=== PATIENT | male | born 1930 | race Caucasian/White ===

== ENCOUNTER 2016-11-28 05:36 | Inpatient (IN) | payer MEDICARE ==
[2016-11-28] VITALS (9 sets, daily range): BP systolic 110–147; BP diastolic 66–82; PULSE 69–101; RESP 13–21; O2SAT 93–98
[~2016-11-28] VITALS: Ht 182.9 cm; Wt 91.1 kg
[~2016-11-28 05:36] MED LIST: Albuterol inhaler IH; COU5 PO; DILT240C45; DOCU250C7 PO; EPOETIN ALFA SUBQ; FRSM80T PO; FURO40TA PO; Flonase; HYDR1TAB PO; LOPRESSOR25 MG PO; METO25TA6 PO; MULT-892 PO; POTA20TA16 PO; TAM4 PO; TAMS0.4C29; WARF5TAB7; Warfarin PO; ZLP10T PO; [UNRECOGNIZED DRUG - CODE] PO
--- NOTE | 2016-11-28 06:26 | ED.REPORT ---
HPI-Abd Pain M 40 and Over Date of Service Nov 28, 2016 ED Provider: Nate Dowling MD History of Present Illness: OCC Patient is an 86 year old male anticoagulated on Warfarin who presents to the ED complaining of right sided abdominal pain onset last night. He describes his pain as soreness. Associated symptoms include a cough which exacerbated his pain and abdominal swelling. He denies fever, SOB, dysuria, nausea, vomiting, diarrhea, or any other symptoms. He has been taking NyQuil. He took half of a Vicodin at 0500 this morning. His Warfarin level was last checked last week and it was a little high. Nursing Notes Stated Complaint: ABDOMINAL PAIN Chief Complaint: Male Abdominal Pain Nursing Notes Reviewed: Yes (TriviaPad, meds not reconciled, MED indicates ho warfarin use) Allergies: Coded Allergies: No Known Allergies (Verified , 11/28/16) Scheduled ([Procrit Q 2 Wks]) 30,000 U SUBQ Qmonth ([Albuterol inhaler]) IH PRN ([Warfarin]) 2.5 PO 2XW ([Flonase]) DAILY Diltiazem-Expunged Drug, Do Not Renew! (Diltiazem CD-Expunged Drug, Do Not Renew !) 240 Mg Capsule 240 MG PO DAILY Docusate Sod-Expunged Drug, Do Not Renew! (Docusate Sod-Expunged Drug, Do Not Renew!) 250 Mg Cap 250 MG PO TID Furosemide-Expunged Drug, Do Not Renew! (Lasix-Expunged Drug, Do Not Renew!) 40 Mg Tablet 80 MG PO BID Hydrocod/APAP-Expunged, Do Not Renew! (VICODIN 5/500-Expunged Drug, Do Not Renew ) 1 Udtab Tablet 1 UDTAB PO PRN Metoprolol Tart-Expunged Drug, Do Not Renew! (Metoprolol Tart-Expunged Drug, Do Not Renew!) 25 Mg Tab 25 MG PO BID Multivitamin (Daily Value) 1 Each Tablet 1 EACH PO DAILY Potassium Chl-Expunged Drug, Do Not Renew! (L-Pkf-Gouztfix Drug, Do Not Renew!) 20 Meq Tab.prt.sr 20 MEQ PO DAILY Tamsulosin-Expunged Drug, Do Not Renew! (Flomax-Expunged Drug, Do Not Renew!) 0.4 Mg Capsule 0.4 MG PO DAILY Warfarin Inactive Drug Do Not Use (Coumadin Inactive Drug Do Not Use) 5 Mg Tablet 5 MG PO 4XW Zolpidem-Expunged Drug, Do Not Renew! (Zolpidem-Expunged Drug, Do Not Renew!) 10 Mg Tab 5 MG PO PRN Miscellaneous Medications Diltiazem ER (Dilt XR) 240 Mg Cap.er.deg Furosemide (Furosemide) 80 Mg Tab Metoprolol Tartrate (Metoprolol Tartrate) 25 Mg Tablet Tamsulosin ER (Tamsulosin ER) 0.4 Mg Cap.er.24h Warfarin Sodium (Warfarin Sodium) 5 Mg Tablet General Time Seen by MD: 06:25 Chief Complaint Abdominal pain Hx Obtained From: Patient, Spouse Arrived By: Walk-in Sudden in Onset?: Yes Risk Factors )( AAA Risk Stratification HypertensionNo Smoking Risk factors reviewed Past Medical History Past Medical History Notes: Last ED visit - tx to [facility] [place] for subdural Past Medical History Subdural hematoma 06/2016 Chronic a-fib on Warfarin 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 Physical Exam Initial Vital Signs Vital Signs (First) Date Time Temp Pulse Resp B/P Pulse Ox O2 Delivery O2 Flow Rate FiO2 11/28/16 05:41 37.6 101 18 135/74 95 Room Air Initial VS: Reviewed, Vital signs abnormal Head / Eyes: Normocephalic Neck: Full range of motion Skin: Warm, Dry Neurologic: Alert, Oriented, Nonfocal Psychiatric: Mood/affect normal, Behavior normal, Normal thought content General/Constitutional: Awake, Alert, Well appearing Respiratory / Chest: Atraumatic, No respiratory distress Cardiovascular: Heart sounds NL Abdomen: BS normoactive Tenderness, palpable firmness, and swelling on the R side suspiscious for rectus sheath hematoma. Back: Inspection NL Interpretation & Diagnostics Lab Results Interpretation Result Diagram: 11/28/16 0650 11/28/16 0650 Test 11/28/16 06:50 11/28/16 07:05 11/28/16 09:01 White Blood Count 8.9th/mm3 (3.8-10.1) Red Blood Count 3.60mil/mm3 (4.40-5.80) Hemoglobin 10.2g/dL (13.8-17.2) Hematocrit 30.7% (41.0-50.0) Mean Corpuscular Volume 85.3fL (81-100) Mean Corpuscular Hemoglobin 28.3pg (27.0-35.0) Mean Corpuscular Hemoglobin Concent 33.2% (32.0-37.0) Red Cell Distribution Width 26.6% (12.3-15.4) Platelet Count 563bil/L (150-400) Neutrophils (%) (Auto) 78.8% (40-74) Lymphocytes (%) (Auto) 9.1% (14-46) Monocytes (%) (Auto) 10.9% (4-12) Eosinophils (%) (Auto) 0.4% (0-5) Basophils (%) (Auto) 0.6% (0-3) Prothrombin Time 30.1sec (8.1-12.5) Prothromb Time International Ratio 2.76ratio Sodium Level 134mEq/L (134-144) Potassium Level 4.0mEq/L (3.5-5.2) Chloride Level 94mEq/L (97-108) Carbon Dioxide Level 26mmol/L (18-29) Blood Urea Nitrogen 32mg/dL (8-27) Creatinine 1.47mg/dL (0.76-1.27) Estimat Glomerular Filtration Rate 48mL/min (>59) Glucose Level 128mg/dL (60-99) Calcium Level 8.6mg/dL (8.5-10.1) Total Bilirubin 1.4mg/dL (0.0-1.2) Aspartate Amino Transf (AST/SGOT) 19U/L (0-50) Alanine Aminotransferase (ALT/SGPT) 10U/L (0-44) Alkaline Phosphatase 76U/L (25-160) Total Protein 7.2g/dL (6.4-8.4) Albumin 3.9g/dL (3.4-5.0) Lactic Acid Level 0.8mmol/L (0.4-2.0) Urine Color Yellow (YELLOW) Urine Appearance Clear (CLEAR,HAZY) Urine pH 7.5 (5.0-8.0) Urine Specific [place] 1.010 (1.003-1.035) Urine Protein Negativemg/dL (NEG,TRACE) Urine Glucose (UA) Negativemg/dL (NEGATIVE) Urine Ketones Negativemg/dL (NEGATIVE) Urine Occult Blood Negative (NEGATIVE) Urine Nitrite Negative (NEGATIVE) Urine Bilirubin Negative (NEGATIVE) Urine Urobilinogen Normalmg/dL (NORMAL) Urine Leukocyte Esterase Negative (NEGATIVE) Urine RBC 0-2/hpf (0-2) Urine WBC 0-5/hpf (0-5) Urine Epithelial Cells Occasional/hpf (NONE-MOD) Urine Crystals None seen (NONE SEEN) Urine Bacteria Few/hpf (NONE-FEW) Urine Hyaline Casts None/lpf (NONE) Urine Granular Casts None seen (NONE SEEN) Urine Waxy Casts None seen (NONE SEEN) Urine Red Blood Cell Casts None seen (NONE SEEN) Urine White Blood Cell Casts None seen (NONE SEEN) Urine Mucus None seen (None Seen) Urine Trichomonas None seen (NONE SEEN) Urine Yeast None (NONE SEEN) Urinalysis Comment None Urine Culture Reflexed Not indicated Lab Results Interpretation: CBC normal - mild anemia, not requiring transfusion CMP - trace renal insufficiency Therapeutic INR ECG Interpretation ECG Interpretation: Rate controlled afib nonspecific lateral t wave changes unchaged from jun 2016 rate 83 Time: 06:49 Interpreted by: ED physician X-Ray Chest Interpretation Chest Xray Interpretation: IMPRESSION: Mild left mid and lower lung pneumonia, prior CABG or cardiac valve replacement, or combination thereof. Dictated by: Aroldo Do M.D. on 11/28/2016 at 8:22 Approved by: Aroldo Do M.D. on 11/28/2016 at 8:22 View: Portable, 1 view Interpretation / Wet Read by: Interpret - Radiologist CT Abd / Pelvis Interpretation IMPRESSION: 1. Right rectus sheath hematoma with internal active contrast extravasation. 2. Cirrhosis. 3. Bibasilar pulmonary densities, consistent with pneumonia versus rounded atelectasis. Followup chest CT with intravenous contrast in 3 months is recommended to exclude the less likely possibility of underlying neoplasm. 4. Findings discussed with Dr. Dowling on 11.28.16 at 0820 hrs. Dictated by: Nils Vaughan M.D. on 11/28/2016 at 8:31 Approved by: Nils Vaughan M.D. on 11/28/2016 at 8:31 Study type: Abdominal CT IV contrast Interpretation / Wet Read by: Interpret - Radiologist Re-Eval/Medical Decision Med Decision/Clinical Course This is an 86-year-old male on Coumadin who presents complaining of abdominal pain and right-sided abdominal swelling. She has had a recent cough, with the coughing started having abdominal pain is very severe anytime he coughs. He denies brendan fever shortness of breath. He is on warfarin has had a prior competition of a subdural hematoma requiring drainage a couple years ago. Exam he does have a cough, appears mildly uncomfortable but is pleasant, awake, alert and appropriate and quite sharp. He does have swelling and tenderness over the right side of the rectus sheath and a concern about a rectus wall hematoma. This is been expanding and new since last night. He is not have signs of peritonitis. On anticoagulation for atrial fibrillation and has a porcine valve. He is therapeutic on his INR. Imaging demonstrates a pneumonia on CT scan, as well as a right-sided rectus sheath hematoma, with a small blush. Given he has pain, given there is a blush, and given he still anticoagulated the plan is active reversal w/FFP. In fact the patient says "that is it, I am done with this medication" and makes a reasonable argument that he does not ever want to be on Coumadin again. He has pneumonia-he is being covered with antibiotics. Case was discussed with the hospitalist and the patient is admitted in stable condition. Source of Hx: Old records Time of Eval: 09:43 )( Re-Eval Abdomen: BS normoactive Re-Evaluation/Progress Note: Discussed imaging results with patient and desire for admission. Patient understands and agrees with plan. All questions addressed at this time. Consultation : Referral / Consult Name: Tiarra Boles MD Consulted With: Hospitalist Call Returned at: 10:52 [employer]: Will see patient, Agrees with eval, Agrees with plan, Accepts admit Note: Discussed patient's case. Accepts admit. Counseled Regarding: Diagnosis, Lab results, Need for admission Discharge & Departure Primary Impression: Rectus sheath hematoma Encounter type: initial encounter Qualified Code: S30.1XXA - Contusion of abdominal wall, initial encounter Additional Impressions: Pneumonia Pneumonia type: due to unspecified organism Laterality: unspecified laterality Lung location: unspecified part of lung Qualified Code: B99.9 - Unspecified infectious disease Warfarin anticoagulation Disposition: ADMITTED TO HOSPITAL Vital Signs - All Vital Signs Date Time Temp Pulse Resp B/P Pulse Ox O2 Delivery O2 Flow Rate FiO2 11/28/16 11:09 69 21 132/76 96 Room Air 11/28/16 11:09 37.0 76 14 11/28/16 10:16 37.0 76 14 122/69 95 Room Air 11/28/16 10:05 37.3 84 16 110/72 96 Room Air 11/28/16 07:31 84 13 117/82 97 Room Air 11/28/16 05:41 37.6 101 18 135/74 95 Room Air Referrals: Natalie Langley MD (PCP) Scribe Attestation Portions of this note were transcribed by Jose Bhatia. I, Dr. Dowling personally performed the history, physical exam and medical decision-making; I reviewed and confirmed the accuracy of the information in the transcribed note. Signed by: Jose Bhatia 11/28/16, 1053 copies to: Natalie Langley MD, Matthew F MD Nov 28, 2016 06:26 JOSE BHATIA Nov 28, 2016 06:36
[2016-11-28] MEDS ORDERED: Ondansetron 2 mg/mL 2 mL Inj IVPUSH ONE (06:35)
[2016-11-28] MEDS: HYDROmorphone 0.5 mg/0.5 mL iSecure Syringe IVPUSH PRN ×3 (07:01→12:00)
[2016-11-28 07:18] LABS: BASOPHILS % (AUTO) 0.6 % (0-3); EOSINOPHILS % (AUTO) 0.4 % (0-5); MONOCYTES % (AUTO) 10.9 % (4-12); Mean Corpuscular Hemoglobin 28.3 pg (27.0-35.0); Mean Corpuscular Volume 85.3 fL (81-100); NEUTROPHILS % (AUTO) 78.8 % (40-74); Platelet Count 563 bil/L (150-400)
[2016-11-28 07:19] LABS: INR 2.76 ratio
--- NOTE | 2016-11-28 08:24 | DRSVH ---
PROCEDURE: X-RAY CHEST ONE VIEW, PORTABLE ([id number]) INDICATIONS: cough TECHNIQUE: One view of the chest was acquired. COMPARISON: [facility], , CHEST 2VW, 09/01/2014, 10:00. FINDINGS: Surgical changes and devices: Sternotomy wires, presumed prior CABG. Lungs and pleura: No pleural effusions or pneumothorax. Lungs are abnormal with left mid and lower lung pneumonia. Mediastinum: Mediastinal contours appear normal. Heart size is mildly enlarged. Bones and chest wall: No suspicious bony lesions. Overlying soft tissues appear unremarkable. IMPRESSION: Mild left mid and lower lung pneumonia, prior CABG or cardiac valve replacement, or combi nation thereof. Dictated by: Aroldo Do M.D. on 11/28/2016 at 8:22 Approved by: Aroldo Do M.D. on 11/28/2016 at 8:22
--- NOTE | 2016-11-28 08:33 | DRSVH ---
PROCEDURE: CT ABDOMEN AND PELVIS WITH CONTRAST ([id number]) INDICATIONS: Abd pain, on coumadn TECHNIQUE: After the administration of intravenous contrast, 5 mm thick sections acquired from the diaphragm to the symphysis. 5 mm coronal and sagittal reformats were acquired. For radiation dose reduction, the following was used: automated exposure control, adjustment of mA and/or kV according to patient siz e. COMPARISON: None. FINDINGS: Image quality: Excellent. ABDOMEN: Lung bases: There is moderate bibasilar patchy air space opacity. There is rounded density within the right posterior lung base measuring 3 mm. There is a calcified nodule within the left posterior medi al costophrenic angle measuring 20 mm. Rounded nodular density within the left posterior lung base me asuring 19 mm is present. 6 mm diameter subpleural nodular density within the right anterolateral palak g base. Heart size is enlarged. Solid organs: Liver and spleen are normal in size and enhancement. The hepatic contour is nodular, indicating cirrhosis. Gallbladder is within normal limits. Biliary system is non dilated. Pancreas enhances normally. No adrenal nodules. Kidneys demonstrate normal size and enhancement, without hyd ronephrosis. Peritoneum and bowel: Bowel loops demonstrate normal wall thickness and caliber. No free fluid or a ir. Nodes and vessels: No retroperitoneal or mesenteric adenopathy by size criteria. Aorta and inferior vena cava are normal in size. Miscellaneous: No ventral hernias. Within the right anterior abdominal wall involving the right rec tus sheath, there is a fluid/fluid level with high density material measuring 10 cm transverse by 12 cm craniocaudal by 7 cm anteroposterior, indicating hematoma. Within the medial aspect of this hemato ma, there is a focal region of increased density, consistent with active contrast extravasation, donald uring roughly 20 mm. PELVIS: Genitourinary: Bladder wall thickness is normal. Miscellaneous: No inguinal hernias or adenopathy. Bones: No suspicious bony lesions. No acute vertebral body compression fractures. Mild chronic L1 wedging is present. IMPRESSION: 1. Right rectus sheath hematoma with internal active contrast extravasation. 2. Cirrhosis. 3. Bibasilar pulmonary densities, consistent with pneumonia versus rounded atelectasis. Followup ches t CT with intravenous contrast in 3 months is recommended to exclude the less likely possibility of u nderlying neoplasm. 4. Findings discussed with Dr. Dowling on 11.28.16 at 0820 hrs. Dictated by: Nils Vaughan M.D. on 11/28/2016 at 8:31 Approved by: Nils Vaughan M.D. on 11/28/2016 at 8:31
[2016-11-28] MEDS ORDERED: 0.9% Sodium Chloride 250 ML IV ONE (08:55)
[2016-11-28 10:02] LABS: APPEARANCE,URINE CLEAR (CLEAR,HAZY); COLOR,URINE YELLOW (YELLOW); OCCULT BLOOD,URINE NEGATIVE (NEGATIVE); PH,URINE 7.5 (5.0-8.0); UROBILINOGEN,URINE NORMAL (NORMAL)
[2016-11-28] MEDS ORDERED: Azithromycin Inj 500 MG in Dextrose 5% w/Vial Mate 250 ML IV ONE (10:45)
[2016-11-28] MEDS ORDERED: cefTRIAXone Inj 2,000 MG in IV Premix 1 EACH IV ONE (10:45)
[2016-11-28] MEDS: Ondansetron 2 mg/mL 2 mL Inj IVPUSH PRN (11:20)
--- NOTE | 2016-11-28 12:15 | NUR ---
Admit to [facility] [place] from ED Pt admitted via stretcher at 1205. Last 5 min of FFP/NS infused now stopped and IV SL. Pt c/o R sided abd pain 06/28. Medicated in ED prior to transport-per report. Pt oriented to room and facility. Bed in low position, call light in reach. Ice pack given for discomfort. IV in hand patent. Family at bedside. Admit yet to be done.
[2016-11-28] MEDS ORDERED: PHA MIX IV ONE (12:50)
[2016-11-28] MEDS ORDERED: Polyethylene Glycol (PEG) 17 Gm Powder PO PRN (12:50)
[2016-11-28] MEDS ORDERED: PHYTONADIONE IV ONE (12:50)
[2016-11-28] MEDS ORDERED: DEXTROSE 5% IV ONE (12:50)
--- NOTE | 2016-11-28 14:03 | PCM.HPMED ---
Subjective Date of Service Nov 28, 2016 Primary Provider: Admitting Physician: Tiarra Boles MD Primary Care Physician: Natalie Langley MD Attending Physician: Tiarra Boles MD Chief Complaint: Severe abdominal pain History of Present Illness: 86-year-old male with A. fib on Coumadin for 10 years, s/p AVR, follow up , hx of SDH in due to mechanical fall p/w sudden onset abdominal pain. Patient was usual state of health until Shira, he had intermittent dry cough , subjective chills, cough has not really progressed to productive, frequency of cough has not changed. Last night, patient also was coughing and started having soreness on his belly, gradually got worsened 06/28, no n/v, no chest pain or difficulty breathing though palpitation. Patient took Vicodin 1 tablet , which did not resolve the pain. Pain was getting worse until this morning, decided to come to the hospital ROS: Denies fever or chills, nausea, vomiting, diarrhea, consultation, had normal bowel movement yesterday, sick contacts, travel, dysuria/frequency, denied weight gain/increased abdominal girdle/LE edema In ED, VS XK090m, HR101, fever37.6, RR18, 95% on RA, pt noted to have palpitating mass on abdomen, CT abd with contrast showed hematoma in Rt rectus sheath [id number] with active extravasation 20mm, INR2.76 so pt received 2FFP, zofran, Miralax, CXR suggestive of PNA, LLL infilrate, Rocephin/azithromycin given. During interview in [facility] [place], VS remained stable, pt stated pain improved to 3/10, denied SOB, still coughing mildly, no sputum, denied F/C Review of Systems: Pertinent positives as noted in history of present illness. 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 Chronic renal insufficiency ho Thoracic aortic aneurysm Anemia of renal disease Hypertension Hearing loss Past Surgical History S/P aortic valve replacement with porcine valve subdural hematoma drainage SH never smoked, occasional ETOH, no illicit drugs Lives with Social History Hx Alcohol Use: Yes (socially) Hx Substance Use: No Hx Tobacco Use: No Smoking Status: Never Smoker, Unknown if Ever Smoker Exam Vital Signs Vital Sign - Last Date Time Temp Pulse Resp B/P Pulse Ox O2 Delivery O2 Flow Rate FiO2 11/28/16 12:18 36.9 69 20 147/66 98 Room Air Exam NAD, comfortably laying down on the bed no JVD, MMM, no LAD RRR, nl s1, s2 no mrg CTAB, no w,c S,ND,periumbilical mass mildly tender to palpate,normoactive BS+ warm, no edema, pulses 2/2 Lab and Diagnostics Result Diagram: 11/28/16 0650 11/28/16 0650 X-Rays, CTs and MRIs PROCEDURE: CT ABDOMEN AND PELVIS WITH CONTRAST ([id number]) INDICATIONS: Abd pain, on coumadn TECHNIQUE: After the administration of intravenous contrast, 5 mm thick sections acquired from the diaphragm to the symphysis. 5 mm coronal and sagittal reformats were acquired. For radiation dose reduction, the following was used: automated exposure control, adjustment of mA and/or kV according to patient size. COMPARISON: None. FINDINGS: Image quality: Excellent. ABDOMEN: Lung bases: There is moderate bibasilar patchy air space opacity. There is rounded density within the right posterior lung base measuring 3 mm. There is a calcified nodule within the left posterior medial costophrenic angle measuring 20 mm. Rounded nodular density within the left posterior lung base measuring 19 mm is present. 6 mm diameter subpleural nodular density within the right anterolateral lung base. Heart size is enlarged. Solid organs: Liver and spleen are normal in size and enhancement. The hepatic contour is nodular, indicating cirrhosis. Gallbladder is within normal limits. Biliary system is non dilated. Pancreas enhances normally. No adrenal nodules. Kidneys demonstrate normal size and enhancement, without hydronephrosis. Peritoneum and bowel: Bowel loops demonstrate normal wall thickness and caliber. No free fluid or air. Nodes and vessels: No retroperitoneal or mesenteric adenopathy by size criteria. Aorta and inferior vena cava are normal in size. Miscellaneous: No ventral hernias. Within the right anterior abdominal wall involving the right rectus sheath, there is a fluid/fluid level with high density material measuring 10 cm transverse by 12 cm craniocaudal by 7 cm anteroposterior, indicating hematoma. Within the medial aspect of this hematoma , there is a focal region of increased density, consistent with active contrast extravasation, measuring roughly 20 mm. PELVIS: Genitourinary: Bladder wall thickness is normal. Miscellaneous: No inguinal hernias or adenopathy. Bones: No suspicious bony lesions. No acute vertebral body compression fractures. Mild chronic L1 wedging is present. IMPRESSION: 1. Right rectus sheath hematoma with internal active contrast extravasation. 2. Cirrhosis. 3. Bibasilar pulmonary densities, consistent with pneumonia versus rounded atelectasis. Followup chest CT with intravenous contrast in 3 months is recommended to exclude the less likely possibility of underlying neoplasm. 4. Findings discussed with Dr. Dowling on 11.28.16 at 0820 hrs. Dictated by: Nils Vaughan M.D. on 11/28/2016 at 8:31 Approved by: Nils Vaughan M.D. on 11/28/2016 at 8:31 Assessment & Plan 86-year-old male with A. fib on Coumadin for 10 years, s/p AVR, follow up , hx of SDH in due to mechanical fall p/w sudden onset abdominal pain, found to have rectus sheath bleeding acute, active #Right rectal sheath hematoma, POA, in the setting of Coumadin, size [id number] with active extravasation 20mm, INR2.76 s/p 2FFP -consulted with Gen Surg, IR, since this is venous bleeding, spontaneously resolves, no indiction for embolization/surgery -serial h/h q8h, close observation of hematoma size -will give vitK 2mg iv, check INR tomorrow -transfuse, hgb target>8 given CAD -defer further use of anticoagulant to Cardiology, current indication seems only for afib with stroke prevention, likely not to initiate any AC given recurrent bleeding episode. #Intermittent dry cough, subacute>2kws, POA, no SIRS except mild fever, s/p Rocephin/Azithromycin in ED, CT abd showed multiple pulmonary nodules in Rt posterior base, 3mm, Left posterior medial 20mm, 6mm subpleural in Rt anteroilateral base, ddx: malignancy vs atypical infection, -will to viral PCR swab -if pt stays longer, consider pulmonary/ID consult, will supportively tx for now chronic, stable #persistent afib, rate controlled, continue BB today, reusume dilt po tomorrow #s/p bioprosthetic AVR, resume lasix pt remains HD stable dispo; Patient is admitted under observation status with expectation that she will be discharged within 24-48 hours, Diet: cardiac healthy dvt ppx:SCD, systemic AC Full Code Time spent 65min Tiarra Boles MD Nov 28, 2016 13:37
[2016-11-28 18:50] LABS: BASOPHILS % (AUTO) 0.3 % (0-3); EOSINOPHILS % (AUTO) 0.1 % (0-5); MONOCYTES % (AUTO) 8.6 % (4-12); Mean Corpuscular Hemoglobin 28.2 pg (27.0-35.0); Mean Corpuscular Volume 86.7 fL (81-100); NEUTROPHILS % (AUTO) 83.9 % (40-74); Platelet Count 590 bil/L (150-400)
[2016-11-28 19:00] LABS: INR 2.04 ratio
[2016-11-28] MEDS ORDERED: DOCU250C2 PO ×2 (20:28→20:30)
[2016-11-28] MEDS ORDERED: OXYB5TAB10 PO (20:28)
[2016-11-28] MEDS ORDERED: WARF2.5T82 PO (22:36)
[2016-11-28] MEDS ORDERED: CALC500T9 PO (22:42)
[2016-11-29 00:16] LABS: BASOPHILS % (AUTO) 0.3 % (0-3); EOSINOPHILS % (AUTO) 0.2 % (0-5); MONOCYTES % (AUTO) 12.3 % (4-12); Mean Corpuscular Hemoglobin 28.2 pg (27.0-35.0); Mean Corpuscular Volume 86.2 fL (81-100); NEUTROPHILS % (AUTO) 78.4 % (40-74); Platelet Count 640 bil/L (150-400)
[2016-11-29 00:45] VITALS: BP 129/63; PULSE 82; RESP 18; O2SAT 94
--- NOTE | 2016-11-29 04:34 | NUR ---
Abdominal Hematoma Pt had 2 jt bandages to wrap around stomach for support. Intermittent coughing spells with pain and discomfort. Pt reports not feeling size is changing. Pain level around 6/10 and decreased to 2/10 when medicated with IV morphine. Abdominal circumference markings marked on stomach - top, mid, and navel with permanent marker and measurements placed on board with time. 0030: 42.5" (top), 45.5" (mid), 43" (navel). Recommend to measure Q6H, will need to remove jt bandages for measuring. Addendum: 11/29/16 at 0529 by GODFREY HODGES RN Reported abdomen pain again 04/28. Morphine not available per orders. PRN Hydrocodone administered. Pt reports that the pain is gone. Will recommend to dayshift that Hydrocodone works better.
[2016-11-29] MEDS: HYDROcodone-APAP 5-325 mg Tablet PO PRN (04:58)
[2016-11-29 05:44] VITALS: BP 109/67; PULSE 86; RESP 18; O2SAT 95
[2016-11-29 06:37] LABS: BASOPHILS % (AUTO) 0.3 % (0-3); EOSINOPHILS % (AUTO) 0.1 % (0-5); MONOCYTES % (AUTO) 12.9 % (4-12); Mean Corpuscular Hemoglobin 28.1 pg (27.0-35.0); Mean Corpuscular Volume 86.8 fL (81-100); Platelet Count 639 bil/L (150-400)
[2016-11-29 07:06] LABS: Magnesium 2.6 mg/dL (1.6-2.6); Phosphorus 3.9 mg/dL (2.5-4.9)
[2016-11-29] MEDS: Diltiazem CD 240 mg ER24 Capsule PO SCH (09:02)
[2016-11-29] MEDS: Polyethylene Glycol (PEG) 17 Gm Powder PO SCH (09:02)
[2016-11-29 09:30] VITALS: BP 110/70; PULSE 97; RESP 17; O2SAT 94
[2016-11-29] MEDS ORDERED: guaiFENesin 600 mg ER12 Tablet PO SCH (10:33)
[2016-11-29 11:31] VITALS: PULSE 89
[2016-11-29] MEDS: Alum-Mag Hydrox-Simeth 30 mL Suspension PO PRN ×2 (12:37→21:17)
--- NOTE | 2016-11-29 13:40 | NUR ---
Case Management: OBS brochure given and explained to Pt and . Callie HARTMAN, RN
[2016-11-29] MEDS: guaiFENesin 600 mg ER12 Tablet PO SCH ×2 (14:00→21:11)
[2016-11-29 14:04] VITALS: BP 128/67; PULSE 80; RESP 17; O2SAT 94
--- NOTE | 2016-11-29 15:18 | DRSVH ---
PROCEDURE: CT CHEST WITH CONTRAST ([id number]) INDICATIONS: To evaluate for pulmonary nodules TECHNIQUE: After the administration of intravenous contrast, 5 mm thick sections acquired from the pulmonary api george to the posterior costophrenic angles. 7 mm thick coronal and sagittal MIP reformats were acquire d. For radiation dose reduction, the following was used: automated exposure control, adjustment of mA and/or kV according to patient size. COMPARISON: [facility], CT, CT ABD PELVIS W CON, 11/28/2016, 7:46. [facility], CR, CHEST 2VW, 09/01/2014, 10:00. FINDINGS: Image quality: Excellent. Lungs and pleura: Calcified granuloma within the left lung base posteriorly. No significant change in rounded opacity at the right posterior lung base, measuring roughly 58 mm. Moderate patchy airspace opacity within the left lower lobe is unchanged. Airspace opacity within the left lower lobe more sup eriorly is present. No pleural effusions or pneumothorax. Central and peripheral airways are patent and normal in caliber. Mediastinum: Heart size is enlarged. There is calcification of the coronary vasculature.. No perica rdial effusion. No mediastinal or hilar adenopathy by size criteria. Thoracic aorta and central pul monary arteries are normal in size. Esophagus is normal in caliber. No hiatal hernia. Bones and chest wall: No suspicious bony lesions. No vertebral body compression fractures. No axil leigh or supraclavicular adenopathy by size criteria. Thyroid gland is within normal limits. Abdomen: Visualized portions of the upper abdomen demonstrate the superior aspect of the right rectu s sheath hematoma. IMPRESSION: 1. No significant change in rounded density within the right lung base, possibly indicating rounded p neumonia. Continued followup is recommended to exclude malignancy, beginning with chest CT examinatio n in 1 month. 2. Left lower lobe pneumonia. 3. Coronary artery disease and cardiomegaly. 4. Incompletely visualized right rectus sheath hematoma. Dictated by: Nils Vaughan M.D. on 11/29/2016 at 15:17 Approved by: Nils Vaughan M.D. on 11/29/2016 at 15:17
--- NOTE | 2016-11-29 16:20 | NUR ---
Social Work-initial assessment/readiness for discharge: Data:See initial assessment. Pt is a 86 y/o male who was admitted on 11/28/16 for rectal sheet hematoma per H&P. Pt's insurance is [employer] and PCP is Natalie Langley MD. EMR Reviewed. Pt's readmission score is 4-high risk. SW met with pt to discuss discharge planning, SW role explained. Pt resides at home with his in [place] where he remains independent with ADLs. Pt does not use any DME and drives. Pt has no HH or SNF history. 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 SW discussed DPOA/ advanced directive, pt states he has completed this, SW encouraged pt to bring a copy into the hospital. Per RN notes, pt has been up independent in his room. Pt's to provide transport home at discharge. SW provided phone number and plan on white board in room. No anticipated discharge needs. SW will continue to follow if needs arise. Assessment:Pt who is independent at baseline. Plan:Pt to discharge home when medically stable via POV. No anticipated discharge needs. SW will continue to follow if needs arise. ELAYNE Adams Addendum: 11/29/16 at 1625 by ARIANNE PISANO Amended: Links added.
--- NOTE | 2016-11-29 18:34 | NUR ---
Fever Patient temp 99.0 @ 14:00. Tylenol administered.
[2016-11-29 21:44] VITALS: BP 111/59; PULSE 69; RESP 18; O2SAT 92
--- NOTE | 2016-11-29 22:58 | PCM.PNMED ---
Subjective Date of Service Nov 29, 2016 Subjective Patient has no new complaints. He feels that his abdominal distention and discomfort is stable this point. Exam Vital Signs Vital Sign - Last Date Time Temp Pulse Resp B/P Pulse Ox O2 Delivery O2 Flow Rate FiO2 11/29/16 21:44 36.6 69 18 111/59 92 Room Air Intake and Output 11/28/16 11/28/16 11/29/16 Cumulative From/Thru 15:00 23:00 07:00 11/28/16 05:41 - 11/29/16 06:17 Intake Total 250 ml 1600 ml 400 ml 2250 ml Balance 250 ml 1600 ml 400 ml 2250 ml Intake Oral 1600 ml 400 ml 2000 ml IV Total 250 ml 250 ml # Voids 3 3 Exam General: Patient appears comfortable lying in bed with head elevated at approximately 45 HEENT: Head is atraumatic normocephalic with normal male pattern baldness.. Eyes: Pupils are equally round and reactive to light and accommodation. Extraocular muscles are intact. Sclera are white anicteric. Subconjunctival mucosa is pink. Ears and nose are unremarkable. Oropharynx: There is no mucosal lesions, there is no thrush, there is no pharyngitis. Neck: Is supple, there are no nodes, or masses, or tenderness. Chest: Is clear to auscultation and percussion. There are no rales, rhonchi, wheezes or rubs. Heart: Rate, rhythm is regular. There is no murmur, rub or gallop. Abdomen: Good bowel sounds are present. Abdomen is firm especially right of midline, no significant tenderness, no organomegaly or masses were appreciated. Extremities: Are symmetrical and well perfused. There is no edema, there is no cellulitis, no rash. Neurologic: There are no focal neurological deficits. Cranial nerves II through XII are intact. There are no sensory or motor deficits. Psychiatric: Patients mood is calm and shows no sign of agitation. Genital: Deferred Rectal: Deferred Lab and Diagnostics Result Diagram: 11/29/1654611/29/16546 Microbiology Specimen: [id number] Collected: 11/28/16 Status: COMP Req#: [id number] Received: 11/28/16-1523 Source: ROSA Zelaya Desc : Subm Dr: Tiarra Boles MD Ordered: RVP Comments: Collected by Nurse/Unit? Y/N Y Procedure Result Verified Site Microbiology ADENOVIRUS RESPIRATORY PCR Final 11/28/16-1638 Not Detected CORONOVIRUS 229E Final 11/28/16 Not Detected CORONOVIRUS HKU1 Final 11/28/16 Not Detected CORONOVIRUS NL63 Final 11/28/16-1638 Not Detected CORONOVIRUS OC43 Final 11/28/16 Not Detected INFLUENZA A PCR Final 11/28/16 Not Detected INFLUENZA B PCR Final 11/28/16 Not Detected METAPNEUMOVIRUS PCR Final 11/28/16 Not Detected RHINOVIRUS OR ENTEROVIRUS PCR Final 11/28/16 Not Detected PARAINFLUENZA 1 PCR Final 11/28/16 Not Detected PARAINFLUENZA 2 PCR Final 11/28/16 Not Detected PARAINFLUENZA 3 PCR Final 11/28/16 Not Detected PARAINFLUENZA 4 PCR Final 11/28/16 Not Detected CONTINUED ON NEXT PAGE RUN DATE: 11/28/16 [facility] LIVE PAGE 2 RUN TIME: 1639 Specimen Inquiry PHYSICIAN Patient: ALEX ROMERO [id number] (Continued) Specimen: [id number] Collected: 11/28/16 Received: 11/28/16 (Continued) Procedure Result Verified Site RESP SYNCYTIAL VIRUS PCR Final 11/28/16-1638 Not Detected Microbiology (Continued) CHLAMDOPHILIA PNEUMONIAE PCR Final 11/28/16 Not Detected MYCOPLASMA PNEUMONIAE PCR Final 11/28/16 MYCO PNEUMONIAE PCR Not Detected Reference Interval Not Detected FURNITURE DIPPER swab is the only specimen type cleared by the FDA. Nasal wash, tracheal aspirate, and bronchial lavage specimen types have not been cleared by the FDA. Therefore results on any specimen type other than nasopharyngeal are considered investigational testing only. X-Rays, CTs and MRIs PROCEDURE: CT ABDOMEN AND PELVIS WITH CONTRAST ([id number]) INDICATIONS: Abd pain, on coumadn TECHNIQUE: After the administration of intravenous contrast, 5 mm thick sections acquired from the diaphragm to the symphysis. 5 mm coronal and sagittal reformats were acquired. For radiation dose reduction, the following was used: automated exposure control, adjustment of mA and/or kV according to patient size. COMPARISON: None. FINDINGS: Image quality: Excellent. ABDOMEN: Lung bases: There is moderate bibasilar patchy air space opacity. There is rounded density within the right posterior lung base measuring 3 mm. There is a calcified nodule within the left posterior medial costophrenic angle measuring 20 mm. Rounded nodular density within the left posterior lung base measuring 19 mm is present. 6 mm diameter subpleural nodular density within the right anterolateral lung base. Heart size is enlarged. Solid organs: Liver and spleen are normal in size and enhancement. The hepatic contour is nodular, indicating cirrhosis. Gallbladder is within normal limits. Biliary system is non dilated. Pancreas enhances normally. No adrenal nodules. Kidneys demonstrate normal size and enhancement, without hydronephrosis. Peritoneum and bowel: Bowel loops demonstrate normal wall thickness and caliber. No free fluid or air. Nodes and vessels: No retroperitoneal or mesenteric adenopathy by size criteria. Aorta and inferior vena cava are normal in size. Miscellaneous: No ventral hernias. Within the right anterior abdominal wall involving the right rectus sheath, there is a fluid/fluid level with high density material measuring 10 cm transverse by 12 cm craniocaudal by 7 cm anteroposterior, indicating hematoma. Within the medial aspect of this hematoma , there is a focal region of increased density, consistent with active contrast extravasation, measuring roughly 20 mm. PELVIS: Genitourinary: Bladder wall thickness is normal. Miscellaneous: No inguinal hernias or adenopathy. Bones: No suspicious bony lesions. No acute vertebral body compression fractures. Mild chronic L1 wedging is present. IMPRESSION: 1. Right rectus sheath hematoma with internal active contrast extravasation. 2. Cirrhosis. 3. Bibasilar pulmonary densities, consistent with pneumonia versus rounded atelectasis. Followup chest CT with intravenous contrast in 3 months is recommended to exclude the less likely possibility of underlying neoplasm. 4. Findings discussed with Dr. Dowling on 11.28.16 at 0820 hrs. Dictated by: Nils Vaughan M.D. on 11/28/2016 at 8:31 Approved by: Nils Vaughan M.D. on 11/28/2016 at 8:31 PROCEDURE: CT CHEST WITH CONTRAST ([id number]) INDICATIONS: To evaluate for pulmonary nodules TECHNIQUE: After the administration of intravenous contrast, 5 mm thick sections acquired from the pulmonary apices to the posterior costophrenic angles. 7 mm thick coronal and sagittal MIP reformats were acquired. For radiation dose reduction , the following was used: automated exposure control, adjustment of mA and/or kV according to patient size. COMPARISON: [facility], CT, CT ABD PELVIS W CON, 11/28/2016, 7:46. [facility], CR, CHEST 2VW, 09/01/2014, 10:00. FINDINGS: Image quality: Excellent. Lungs and pleura: Calcified granuloma within the left lung base posteriorly. No significant change in rounded opacity at the right posterior lung base, measuring roughly 58 mm. Moderate patchy airspace opacity within the left lower lobe is unchanged. Airspace opacity within the left lower lobe more superiorly is present. No pleural effusions or pneumothorax. Central and peripheral airways are patent and normal in caliber. Mediastinum: Heart size is enlarged. There is calcification of the coronary vasculature.. No pericardial effusion. No mediastinal or hilar adenopathy by size criteria. Thoracic aorta and central pulmonary arteries are normal in size. Esophagus is normal in caliber. No hiatal hernia. Bones and chest wall: No suspicious bony lesions. No vertebral body compression fractures. No axillary or supraclavicular adenopathy by size criteria. Thyroid gland is within normal limits. Abdomen: Visualized portions of the upper abdomen demonstrate the superior aspect of the right rectus sheath hematoma. IMPRESSION: 1. No significant change in rounded density within the right lung base, possibly indicating rounded pneumonia. Continued followup is recommended to exclude malignancy, beginning with chest CT examination in 1 month. 2. Left lower lobe pneumonia. 3. Coronary artery disease and cardiomegaly. 4. Incompletely visualized right rectus sheath hematoma. Dictated by: Nils Vaughan M.D. on 11/29/2016 at 15:17 Approved by: Nils Vaughan M.D. on 11/29/2016 at 15:17 Assessment & Plan 86-year-old male with A. fib on Coumadin for 10 years, s/p AVR, follow up , hx of SDH in due to mechanical fall p/w sudden onset abdominal pain, found to have rectus sheath bleeding acute, active # Right rectal sheath hematoma, present on admission, in the setting of Coumadin , size [id number] with active extravasation 20mm, INR2.76 s/p 2FFP -We have consulted with Gen Surg, IR, since this is venous bleeding, spontaneously resolves, no indiction for embolization/surgery -Continue serial h/h q8h, close observation of hematoma size. There does not appear to be any increase in the size of the hematoma -will give vitK 2mg iv, check INR tomorrow -transfuse, hgb target>8 given CAD -We will defer further use of anticoagulant to Cardiology, current indication seems only for afib with stroke prevention, likely not to initiate any AC given recurrent bleeding episode. # Intermittent dry cough, subacute>2kws, POA, no SIRS except mild fever, s/p Rocephin/Azithromycin in ED, CT abd showed multiple pulmonary nodules in Rt posterior base, 3mm, Left posterior medial 20mm, 6mm subpleural in Rt anteroilateral base, ddx: malignancy vs atypical infection. -CT scan of the chest indicates that there is left lower lobe pneumonia and possibly round pneumonia of the right lower lobe. Repeat CT of the chest recommended in 1 month. Based on this information will restart Rocephin and azithromycin this evening. -The patient's viral PCR swab was negative -We will consider pulmonary/ID consult, will supportively tx for now chronic, stable # Persistent afib, rate controlled, continue BB today, reusume dilt po tomorrow # S/P bioprosthetic AVR, resume lasix pt remains HD stable Disposition: Patient is admitted under observation status, however with new CT findings of bilateral pneumonia, patient will likely need to be changed to inpatient status as he will require 48-72 hours of inpatient treatment. Diet: Continue cardiac healthy. Pain Evaluation: Adequate Pain Control GI Prophylaxis: Not indicated VTE Mechanical Devices: Venous Foot Pump Resuscitation Status: CPR: Attempt Resuscitation MadinaBen MD Nov 29, 2016 22:58
[2016-11-29] MEDS: Azithromycin Inj 500 MG in Dextrose 5% w/Vial Mate 250 ML IV SCH (23:41)
[2016-11-30] VITALS (9 sets, daily range): BP systolic 116–136; BP diastolic 53–97; PULSE 65–87; RESP 16–19; O2SAT 94–95
[2016-11-30] MEDS: Ondansetron 2 mg/mL 2 mL Inj IVPUSH PRN (00:11)
[2016-11-30] MEDS: cefTRIAXone Inj 2,000 MG in IV Premix 1 EACH IV SCH ×2 (00:48→09:06)
--- NOTE | 2016-11-30 03:59 | NUR ---
Nausea c/o nausea 5 minutes after admin of first abx Azithromycin, 4mg Zofran worked well. Patient resting quietly.
[2016-11-30 06:39] LABS: EOSINOPHILS % (AUTO) 0.4 % (0-5); NEUTROPHILS % (AUTO) 78.4 % (40-74)
[2016-11-30 06:41] LABS: BASOPHILS % (AUTO) 0.3 % (0-3); MONOCYTES % (AUTO) 11.8 % (4-12); Mean Corpuscular Hemoglobin 27.8 pg (27.0-35.0); Mean Corpuscular Volume 86.7 fL (81-100); Platelet Count 673 bil/L (150-400)
[2016-11-30 06:50] LABS: Magnesium 2.7 mg/dL (1.6-2.6)
[2016-11-30 07:22] LABS: ERYTHROCYTE SEDIMENTATION RATE 62 mm/hr (0-30)
[2016-11-30] MEDS ORDERED: Furosemide 10 mg/mL 2 mL Inj IV ONE ×2 (09:00)
[2016-11-30] MEDS: Polyethylene Glycol (PEG) 17 Gm Powder PO SCH (09:03)
[2016-11-30] MEDS: guaiFENesin 600 mg ER12 Tablet PO SCH ×2 (09:04→20:54)
[2016-11-30] MEDS: Diltiazem CD 240 mg ER24 Capsule PO SCH (09:04)
[2016-11-30] MEDS: Azithromycin Inj 500 MG in Dextrose 5% w/Vial Mate 250 ML IV SCH (09:56)
[2016-11-30] MEDS ORDERED: 0.9% Sodium Chloride 250 ML ONE ×2 (12:26→14:23)
--- NOTE | 2016-11-30 15:22 | CONS ---
[address] [address] CONSULTATION REPORT PATIENT: ALEX ROMERO : 1930 MR#: [id number] ADMIT: 11/28/2016 JOB ID: [id number] DATE OF SERVICE: 11/30/2016 INFECTIOUS DISEASE CONSULT: REASON FOR THE CONSULTATION: Unusual bilateral lower lobe infiltrates. I thank Dr. Boni Painter for this timely consult. 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 The patient's history starts right around [place] when he developed a nonproductive but intense cough, as well as some subjective chills, low-grade fevers and a bit of malaise. His cough has been quite severe and has now continued into a third week. In association with this pain, he started developing severe abdominal pain over the past couple of days. This gradually worsened to the point where on November 28 he was 8/10 and intolerable, so he presented to the hospital. Investigations since admission have shown that he has a rectus sheath hematoma, which is presumably secondary to his ongoing anticoagulation with Coumadin and his persistent severe cough. 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 The patient and his tell me that the cough started insidiously around [place]. They were visited by many relatives during that time, but none of them had a cough or appeared ill. The patient's cough has really continued unabated but it was fairly mild most times, though occasionally there were paroxysms. The fevers and chills were low grade and hardly noticeable to the patient and, in general, he did not feel terribly ill as the result of his 2-1/2 or 3-week respiratory tract illness. 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 c. Chronic anticoagulation. 2. Subdural hematoma in June 2016, status post evacuation. 3. Chronic renal insufficiency. 4. Chronic anemia. 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 He retired some years ago and lives with his on [address], where they have an enormous garden and also raise chickens, turkeys and have pet cats. They have only traveled in the last few years to [place], and there has been no travel to the [facility] or the [place], though the patient has lived in the [place] in the distant past. FAMILY HISTORY: Negative for tuberculosis. REVIEW OF SYSTEMS: The patient has subjective chills and perhaps low-grade fevers. No significant headache. No visual complaints, sore throat, trouble swallowing. No chest pain per se. No nausea, vomiting, or diarrhea, though he does have the abdominal pain, which is the reason he actually came to the hospital. No urinary complaints. No musculoskeletal complaints of significance. No skin rash and no neurologic complaints. PHYSICAL EXAMINATION: Reveals an elderly gentleman who appears younger than his stated age of 86. Temperature 37.3. He has been essentially afebrile since admission, although he did have a temperature 37.8 on the , 37.3 today. Pulse 78, respiratory rate 18, blood pressure 117/67. He is saturating well on room air. He is alert, oriented and conversational. Head without evidence of recent trauma. Sinuses nontender. Oral cavity without thrush or pharyngitis. Neck without adenopathy, reasonably supple. Lungs with a few crackles at the bases and an occasional wheeze on the right but not an impressive pulmonary exam. Cardiac exam: Regular rate and rhythm, with systolic murmur. The patient has a well-healed sternotomy scar. His abdomen is tender on the right lower abdominal area. The patient does not have a Linares catheter. His extremities are nonedematous, without cellulitis. Scattered ecchymoses are noted on his extremities though, consistent with his history of Coumadin use and a great deal of outdoor activity. Neurologically, the patient is intact. LABORATORIES: Include a white count which has been steadily rising since admission. It was 8900 on admission, has now risen to 18,000. Platelet count has also been rising from 560 to 673. Sed rate 62. Creatinine 1.65, which is modestly increased. Bilirubin 1.1. LFT normal. Procalcitonin 0.33. Sedimentation rate 62. CRP not done. Urinalysis without white cells. Cultures include just a respiratory viral panel, which is negative. IMAGING: Includes a CT of the abdomen which shows a right rectus sheath hematoma, evidence of cirrhosis and bilateral pulmonary densities. Dedicated CT scan was then done which showed a right lower lobe rounded density, which the radiologist thought could be the so-called round pneumonia, though malignancy would not be completely excluded. Some left infiltrate is also seen. IMPRESSION: Atypical pulm infiltratees in a patient with abd wall bleed RECOMMENDATIONS: 1. I agree with continuing azithromycin and ceftriaxone for the time being, though this is an unusual presentation for community-acquired pneumonia. 2. I would repeat a procalcitonin tomorrow, as this will give us a little more data about possible bacteria etiology of this process. 3. Cryptococcal antigen is indicated in this patient. 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 4. Urine legionella and pneumococcal antigens will be ordered. 5. Sputum Gram stain and culture. 6. QuantiFERON Gold. 7. Hepatitis C antibody. 8. Nothing in the chart that I have seen really reflects any of this history of cirrhosis or any likely reason for it, and I think this is of interest and will likely need some degree of evaluation. We will start with a hepatitis C antibody but it is possible that additional studies may be indicated in the workup of the possible cirrhosis, as was seen on CT scan of the abdomen. Thank you very much for this consult. ELKE
--- NOTE | 2016-11-30 18:37 | NUR ---
Transfusion Patient hemiglobin and hematocrit decreased to 7.3/22.8 this am. Patient transfused with 2 units of RBC's. tolerated well.
--- NOTE | 2016-11-30 22:38 | PCM.PNMED ---
Subjective Date of Service Nov 30, 2016 Subjective Patient is complaining of increased bruising, otherwise he has no new complaints. He has no chest pain no shortness of breath. Exam Vital Signs Vital Sign - Last Date Time Temp Pulse Resp B/P Pulse Ox O2 Delivery O2 Flow Rate FiO2 11/30/16 20:52 36.9 87 16 123/61 95 Room Air Intake and Output 11/29/16 11/29/16 11/30/16 Cumulative From/Thru 15:00 23:00 07:00 11/28/16 05:41 - 11/29/16 21:13 Intake Total 1600 ml 3850 ml Balance 1600 ml 3850 ml Intake Oral 1600 ml 3600 ml IV Total 250 ml # Voids 4 7 Exam General: Patient appears comfortable lying in bed with head elevated again in approximately 45 degrees HEENT: Head is atraumatic normocephalic with normal male pattern baldness.. Eyes: Pupils are equally round and reactive to light and accommodation. Extraocular muscles are intact. Sclera are white anicteric. Subconjunctival mucosa is pink. Ears and nose are unremarkable. Oropharynx: There is no mucosal lesions, there is no thrush, there is no pharyngitis. Neck: Is supple, there are no nodes, or masses, or tenderness. Chest: Is clear to auscultation and percussion. There are no rales, rhonchi, wheezes or rubs. Heart: Rate, rhythm is regular. There is no murmur, rub or gallop. Abdomen: Good bowel sounds are present. Abdomen is slightly less firm especially right of midline, no significant tenderness, no organomegaly or masses were appreciated. There is increased ecchymoses with erythema spreading to the right flank. Extremities: Are symmetrical and well perfused. There is minimal edema, there is no cellulitis, no rash. Neurologic: There are no focal neurological deficits. Cranial nerves II through XII are intact. There are no sensory or motor deficits. Psychiatric: Patients mood is calm and shows no sign of agitation. Genital: Deferred Rectal: Deferred Lab and Diagnostics Result Diagram: 11/30/16193911/30/16 0540 Microbiology Specimen: [id number] Collected: 11/28/16-1499 Status: COMP Req#: [id number] Received: 11/28/16-1523 Source: [facility] Sp Desc : Subm Dr: Tiarra Boles MD Ordered: RVP Comments: Collected by Nurse/Unit? Y/N Y Procedure Result Verified Site Microbiology ADENOVIRUS RESPIRATORY PCR Final 11/28/16 Not Detected CORONOVIRUS 229E Final 11/28/16 Not Detected CORONOVIRUS HKU1 Final 11/28/16 Not Detected CORONOVIRUS NL63 Final 11/28/16 Not Detected CORONOVIRUS OC43 Final 11/28/16 Not Detected INFLUENZA A PCR Final 11/28/16 Not Detected INFLUENZA B PCR Final 11/28/16 Not Detected METAPNEUMOVIRUS PCR Final 11/28/16 Not Detected RHINOVIRUS OR ENTEROVIRUS PCR Final 11/28/16 Not Detected PARAINFLUENZA 1 PCR Final 11/28/16 Not Detected PARAINFLUENZA 2 PCR Final 11/28/16 Not Detected PARAINFLUENZA 3 PCR Final 11/28/16 Not Detected PARAINFLUENZA 4 PCR Final 11/28/16 Not Detected CONTINUED ON NEXT PAGE RUN DATE: 11/28/16 [facility] LIVE PAGE 2 RUN TIME: 1639 Specimen Inquiry PHYSICIAN Patient: ALEX ROMERO [id number] (Continued) Specimen: [id number] Collected: 11/28/16 Received: 11/28/16 (Continued) Procedure Result Verified Site RESP SYNCYTIAL VIRUS PCR Final 11/28/16-1638 Not Detected Microbiology (Continued) CHLAMDOPHILIA PNEUMONIAE PCR Final 11/28/16 Not Detected MYCOPLASMA PNEUMONIAE PCR Final 11/28/16 MYCO PNEUMONIAE PCR Not Detected Reference Interval Not Detected FASHION ILLUSTRATOR swab is the only specimen type cleared by the FDA. Nasal wash, tracheal aspirate, and bronchial lavage specimen types have not been cleared by the FDA. Therefore results on any specimen type other than nasopharyngeal are considered investigational testing only. X-Rays, CTs and MRIs PROCEDURE: CT ABDOMEN AND PELVIS WITH CONTRAST ([id number]) INDICATIONS: Abd pain, on coumadn TECHNIQUE: After the administration of intravenous contrast, 5 mm thick sections acquired from the diaphragm to the symphysis. 5 mm coronal and sagittal reformats were acquired. For radiation dose reduction, the following was used: automated exposure control, adjustment of mA and/or kV according to patient size. COMPARISON: None. FINDINGS: Image quality: Excellent. ABDOMEN: Lung bases: There is moderate bibasilar patchy air space opacity. There is rounded density within the right posterior lung base measuring 3 mm. There is a calcified nodule within the left posterior medial costophrenic angle measuring 20 mm. Rounded nodular density within the left posterior lung base measuring 19 mm is present. 6 mm diameter subpleural nodular density within the right anterolateral lung base. Heart size is enlarged. Solid organs: Liver and spleen are normal in size and enhancement. The hepatic contour is nodular, indicating cirrhosis. Gallbladder is within normal limits. Biliary system is non dilated. Pancreas enhances normally. No adrenal nodules. Kidneys demonstrate normal size and enhancement, without hydronephrosis. Peritoneum and bowel: Bowel loops demonstrate normal wall thickness and caliber. No free fluid or air. Nodes and vessels: No retroperitoneal or mesenteric adenopathy by size criteria. Aorta and inferior vena cava are normal in size. Miscellaneous: No ventral hernias. Within the right anterior abdominal wall involving the right rectus sheath, there is a fluid/fluid level with high density material measuring 10 cm transverse by 12 cm craniocaudal by 7 cm anteroposterior, indicating hematoma. Within the medial aspect of this hematoma , there is a focal region of increased density, consistent with active contrast extravasation, measuring roughly 20 mm. PELVIS: Genitourinary: Bladder wall thickness is normal. Miscellaneous: No inguinal hernias or adenopathy. Bones: No suspicious bony lesions. No acute vertebral body compression fractures. Mild chronic L1 wedging is present. IMPRESSION: 1. Right rectus sheath hematoma with internal active contrast extravasation. 2. Cirrhosis. 3. Bibasilar pulmonary densities, consistent with pneumonia versus rounded atelectasis. Followup chest CT with intravenous contrast in 3 months is recommended to exclude the less likely possibility of underlying neoplasm. 4. Findings discussed with Dr. Dowling on 11.28.16 at 0820 hrs. Dictated by: Nils Vaughan M.D. on 11/28/2016 at 8:31 Approved by: Nils Vaughan M.D. on 11/28/2016 at 8:31 PROCEDURE: CT CHEST WITH CONTRAST ([id number]) INDICATIONS: To evaluate for pulmonary nodules TECHNIQUE: After the administration of intravenous contrast, 5 mm thick sections acquired from the pulmonary apices to the posterior costophrenic angles. 7 mm thick coronal and sagittal MIP reformats were acquired. For radiation dose reduction , the following was used: automated exposure control, adjustment of mA and/or kV according to patient size. COMPARISON: [facility], CT, CT ABD PELVIS W CON, 11/28/2016, 7:46. [facility], CR, CHEST 2VW, 09/01/2014, 10:00. FINDINGS: Image quality: Excellent. Lungs and pleura: Calcified granuloma within the left lung base posteriorly. No significant change in rounded opacity at the right posterior lung base, measuring roughly 58 mm. Moderate patchy airspace opacity within the left lower lobe is unchanged. Airspace opacity within the left lower lobe more superiorly is present. No pleural effusions or pneumothorax. Central and peripheral airways are patent and normal in caliber. Mediastinum: Heart size is enlarged. There is calcification of the coronary vasculature.. No pericardial effusion. No mediastinal or hilar adenopathy by size criteria. Thoracic aorta and central pulmonary arteries are normal in size. Esophagus is normal in caliber. No hiatal hernia. Bones and chest wall: No suspicious bony lesions. No vertebral body compression fractures. No axillary or supraclavicular adenopathy by size criteria. Thyroid gland is within normal limits. Abdomen: Visualized portions of the upper abdomen demonstrate the superior aspect of the right rectus sheath hematoma. IMPRESSION: 1. No significant change in rounded density within the right lung base, possibly indicating rounded pneumonia. Continued followup is recommended to exclude malignancy, beginning with chest CT examination in 1 month. 2. Left lower lobe pneumonia. 3. Coronary artery disease and cardiomegaly. 4. Incompletely visualized right rectus sheath hematoma. Dictated by: Nils Vaughan M.D. on 11/29/2016 at 15:17 Approved by: Nils Vaughan M.D. on 11/29/2016 at 15:17 Assessment & Plan 86-year-old male with A. fib on Coumadin for 10 years, s/p AVR, follow up , hx of SDH in due to mechanical fall p/w sudden onset abdominal pain, found to have rectus sheath bleeding acute, active # Right rectal sheath hematoma, present on admission, in the setting of Coumadin , size [id number] with active extravasation 20mm, INR2.76 s/p 2FFP -We have consulted with Gen Surg, IR, since this is venous bleeding, spontaneously resolves, no indiction for embolization/surgery -Continue serial h/h q8h, close observation of hematoma size. There does not appear to be any increase in the size of the hematoma - The patient was given vitK 2mg iv, check INR tomorrow -Acute blood loss anemia. Will transfuse 2 units of packed red blood cells, hgb target>8 given CAD. Each unit will be followed by Lasix 20 mg IV -We will defer further use of anticoagulant to Cardiology, current indication seems only for afib with stroke prevention, likely not to initiate any AC given recurrent bleeding episode. # Intermittent dry cough, subacute>2kws, prior to admission, no SIRS except mild fever, s/p Rocephin/Azithromycin in ED, CT abd showed multiple pulmonary nodules in Rt posterior base, 3mm, Left posterior medial 20mm, 6mm subpleural in Rt anteroilateral base, ddx: malignancy vs atypical infection. -CT scan of the chest indicates that there is left lower lobe pneumonia and possibly round pneumonia of the right lower lobe. Repeat CT of the chest recommended in 1 month. Based on this information will restart Rocephin and azithromycin this evening. -The patient's viral PCR swab was negative -We have consulted infectious disease and Dr. Campos was kind enough to see the patient and his recommendations are as follows: "RECOMMENDATIONS: 1. I agree with continuing azithromycin and ceftriaxone for the time being, though this is an unusual presentation for community-acquired pneumonia. 2. I would repeat a procalcitonin tomorrow, as this will give us a little more data about possible bacteria etiology of this process. 3. Cryptococcal antigen is indicated in this patient. 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 4. Urine legionella and pneumococcal antigens will be ordered. 5. Sputum Gram stain and culture. 6. QuantiFERON Gold. 7. Hepatitis C antibody. 8. Nothing in the chart that I have seen really reflects any of this history of cirrhosis or any likely reason for it, and I think this is of interest and will likely need some degree of evaluation. We will start with a hepatitis C antibody but it is possible that additional studies may be indicated in the workup of the possible cirrhosis, as was seen on CT scan of the abdomen." chronic, stable # Persistent afib, rate controlled, continue BB today, reusume dilt po tomorrow # S/P bioprosthetic AVR, resume lasix pt remains HD stable Disposition: Patient is admitted under observation status, however with new CT findings of bilateral pneumonia, patient will likely need to be changed to inpatient status as he will require 48-72 hours of inpatient treatment. Diet: Continue cardiac healthy. Disposition: Will be determined by patient's hospital course over the next couple of days. Pain Evaluation: Adequate Pain Control GI Prophylaxis: Not indicated VTE Mechanical Devices: Venous Foot Pump Resuscitation Status: CPR: Attempt Resuscitation Ben Painter MD Nov 30, 2016 22:38
--- NOTE | 2016-12-01 04:28 | NUR ---
Hematoma/Activity Outlined hematoma appears slightly larger this shift moving toward R axillary area. Patient denies pain, declining Jose wraps for splinting. Pt up to chair with 1PA for linen change. Pt using urinal at bedside to void, specimen sent. at bedside overnight assisting with care. Bed alarm on for safety.
[2016-12-01 05:50] VITALS: BP 143/67; PULSE 81; RESP 16; O2SAT 93
[2016-12-01 06:57] LABS: BASOPHILS % (AUTO) 0.2 % (0-3); EOSINOPHILS % (AUTO) 1.2 % (0-5); Mean Corpuscular Hemoglobin 28.5 pg (27.0-35.0); Mean Corpuscular Volume 87.3 fL (81-100); NEUTROPHILS % (AUTO) 80.4 % (40-74); Platelet Count 674 bil/L (150-400)
[2016-12-01 07:13] LABS: Magnesium 2.8 mg/dL (1.6-2.6); Phosphorus 2.5 mg/dL (2.5-4.9)
[2016-12-01] MEDS: Polyethylene Glycol (PEG) 17 Gm Powder PO SCH (08:30)
--- NOTE | 2016-12-01 08:51 | PCM.PNMED ---
Subjective Date of Service Dec 01, 2016 Subjective Patient patient is an 86-year-old male with history significant for A. fib on warfarin, CKD, history of subdural hematoma, and aortic valve replacement presents with abdominal pain status post mechanical fall. He was admitted for a rectus sheath hematoma and pneumonia. Patient denies any new complaints today. Reports walking laps around the unit. Vitals are stable, H&H remained stable as well. Exam Vital Signs Vital Sign - Last Date Time Temp Pulse Resp B/P Pulse Ox O2 Delivery O2 Flow Rate FiO2 12/01/16 05:50 37.2 81 16 143/67 93 Room Air Intake and Output 11/30/16 11/30/16 12/01/16 Cumulative From/Thru 15:00 23:00 07:00 11/28/16 05:41 - 12/01/16 04:15 Intake Total 1150 ml 1100 ml 6100 ml Balance 1150 ml 1100 ml 6100 ml Intake Oral 300 ml 800 ml 4700 ml IV Total 350 ml 600 ml Packed Cells 500 ml 300 ml 800 ml # Voids 1 3 11 # Bowel Movements 1 1 Exam General: No acute distress HEENT: Normocephalic, atraumatic. External ears without defect. Pupils equal, round, and reactive to light and accommodation. Anicteric sclerae, moist conjunctivae, and no lid lag. Neck: Supple with full range of motion. No jugular venous distension. No bruits. No lymphadenopathy or thyromegaly. Cardiovascular: Regular rate and rhythm with no murmurs, rubs, or gallops appreciated Pulmonary: Clear to auscultation bilaterally with no crackles, wheezes, or rhonchi. Normal respiratory effort with no use of accessory muscles. Abdomen: Bowel tones present. Soft, nontender, nondistended. Ecchymosis on the flank Extremities: No clubbing, cyanosis, edema, or lymphadenopathy appreciated. Skin: Normal temperature, turgor, and texture; no rash, ulcers, or subcutaneous nodules appreciated. Neurological: Cranial nerves grossly intact. Normal muscle strength, tone, and bulk. No known gait impairment. Psychiatric: Normal mood and affect. Alert and oriented to person, place, and time. IVs and Medications Medications Reviewed: Medications were reviewed in detail Lab and Diagnostics Result Diagram: 12/01/16 0640 12/01/16 0640 Microbiology Specimen: [id number] Collected: 11/28/16 Status: COMP Req#: [id number] Received: 11/28/16 Source: ROSA Zelaya Desc : Subm Dr: Tiarra Boles MD Ordered: RVP Comments: Collected by Nurse/Unit? Y/N Y Procedure Result Verified Site Microbiology ADENOVIRUS RESPIRATORY PCR Final 11/28/16-1638 Not Detected CORONOVIRUS 229E Final 11/28/16 Not Detected CORONOVIRUS HKU1 Final 11/28/16 Not Detected CORONOVIRUS NL63 Final 11/28/16 Not Detected CORONOVIRUS OC43 Final 11/28/16 Not Detected INFLUENZA A PCR Final 11/28/16 Not Detected INFLUENZA B PCR Final 11/28/16 Not Detected METAPNEUMOVIRUS PCR Final 11/28/16 Not Detected RHINOVIRUS OR ENTEROVIRUS PCR Final 11/28/16 Not Detected PARAINFLUENZA 1 PCR Final 11/28/16 Not Detected PARAINFLUENZA 2 PCR Final 11/28/16 Not Detected PARAINFLUENZA 3 PCR Final 11/28/16 Not Detected PARAINFLUENZA 4 PCR Final 11/28/16 Not Detected CONTINUED ON NEXT PAGE RUN DATE: 11/28/16 [facility] LIVE PAGE 2 RUN TIME: 1639 Specimen Inquiry PHYSICIAN Patient: ALEX ROMERO [id number] (Continued) Specimen: [id number] Collected: 11/28/16 Received: 11/28/16 (Continued) Procedure Result Verified Site RESP SYNCYTIAL VIRUS PCR Final 11/28/16-1638 Not Detected Microbiology (Continued) CHLAMDOPHILIA PNEUMONIAE PCR Final 11/28/16-1638 Not Detected MYCOPLASMA PNEUMONIAE PCR Final 11/28/16 MYCO PNEUMONIAE PCR Not Detected Reference Interval Not Detected LOGGING TR[employer]IVER swab is the only specimen type cleared by the FDA. Nasal wash, tracheal aspirate, and bronchial lavage specimen types have not been cleared by the FDA. Therefore results on any specimen type other than nasopharyngeal are considered investigational testing only. X-Rays, CTs and MRIs PROCEDURE: CT ABDOMEN AND PELVIS WITH CONTRAST INDICATIONS: Abd pain, on coumadn IMPRESSION: 1. Right rectus sheath hematoma with internal active contrast extravasation. 2. Cirrhosis. 3. Bibasilar pulmonary densities, consistent with pneumonia versus rounded atelectasis. Followup chest CT with intravenous contrast in 3 months is recommended to exclude the less likely possibility of underlying neoplasm. 4. Findings discussed with Dr. Dowling on 11.28.16 at 0820 hrs. Dictated by: Nils Vaughan M.D. on 11/28/2016 at 8:31 Approved by: Nils Vaughan M.D. on 11/28/2016 at 8:31 PROCEDURE: CT CHEST WITH CONTRAST ([id number]) INDICATIONS: To evaluate for pulmonary nodules IMPRESSION: 1. No significant change in rounded density within the right lung base, possibly indicating rounded pneumonia. Continued followup is recommended to exclude malignancy, beginning with chest CT examination in 1 month. 2. Left lower lobe pneumonia. 3. Coronary artery disease and cardiomegaly. 4. Incompletely visualized right rectus sheath hematoma. Dictated by: Nils Vaughan M.D. on 11/29/2016 at 15:17 Assessment & Plan Patient patient is an 86-year-old male with history significant for A. fib on warfarin, aortic valve replacement, CKD, history of subdural hematoma, and aortic valve replacement presents with abdominal pain status post mechanical fall. He was admitted for a rectus sheath hematoma and pneumonia. Right rectal sheath hematoma, present on admission, stable - 2nd to fall, in the setting of Coumadin, size [id number] with active extravasation 20mm, INR2.76 s/p 2FFP, Vitamin K - We have consulted with Gen Surg, Dr.Vaughan IR, since this is venous bleeding, spontaneously resolves, no indiction for embolization/surgery - Close observation of hematoma size. - Morphine for pain Acute blood loss anemia, present on admission, stable - Received 2 units of packed red blood cells with Lasix 20 mg IV after each unit - Goals Hgb>8 due to CAD - Trend H&H Chronic Atrial fibrillation, present on admission, stable - Holding warfarin. Patient should never be on warfarin again - Possible aspirin daily 1 mg should H&H stabilized within the next day - Cont diltiazem 240mg daily and metoprolol tartrate BID Left lower lobe pneumonia, present on admission, active - Dry cough >2wks and mild fever, CT scan suggestive of pneumonia, however show pulmonary nodules - Continue Rocephin and azithromycin - ID Dr. Campos has been consulted and is following Disposition: Patient will be here for at least another 2+ days for workup of pneumonia and stabilization hematoma. GI Prophylaxis: Not indicated VTE Mechanical Devices: Venous Foot Pump Resuscitation Status: CPR: Attempt Resuscitation Attending Statement The patient was seen and examined together with Dr. Chaney on 12/01/2016 and I agree with the history, exam and plan as outlined in the note above. Maik Chaney DO Dec 01, 2016 08:51 Wesley Cummins MD Dec 02, 2016 10:24 INDICATIONS: To evaluate for pulmonary nodules TECHNIQUE: After the administration of intravenous contrast, 5 mm thick sections acquired from the pulmonary apices to the posterior costophrenic angles. 7 mm thick coronal and sagittal MIP reformats were acquired. For radiation dose reduction , the following was used: automated exposure control, adjustment of mA and/or kV according to patient size. COMPARISON: [facility], CT, CT ABD PELVIS W CON, 11/28/2016, 7:46. [facility], CR, CHEST 2VW, 09/01/2014, 10:00. FINDINGS: Image quality: Excellent. Lungs and pleura: Calcified granuloma within the left lung base posteriorly. No significant change in rounded opacity at the right posterior lung base, measuring roughly 58 mm. Moderate patchy airspace opacity within the left lower lobe is unchanged. Airspace opacity within the left lower lobe more superiorly is present. No pleural effusions or pneumothorax. Central and peripheral airways are patent and normal in caliber. Mediastinum: Heart size is enlarged. There is calcification of the coronary vasculature.. No pericardial effusion. No mediastinal or hilar adenopathy by size criteria. Thoracic aorta and central pulmonary arteries are normal in size. Esophagus is normal in caliber. No hiatal hernia. Bones and chest wall: No suspicious bony lesions. No vertebral body compression fractures. No axillary or supraclavicular adenopathy by size criteria. Thyroid gland is within normal limits. Abdomen: Visualized portions of the upper abdomen demonstrate the superior aspect of the right rectus sheath hematoma. IMPRESSION: 1. No significant change in rounded density within the right lung base, possibly indicating rounded pneumonia. Continued followup is recommended to exclude malignancy, beginning with chest CT examination in 1 month. 2. Left lower lobe pneumonia. 3. Coronary artery disease and cardiomegaly. 4. Incompletely visualized right rectus sheath hematoma. Dictated by: Nils Vaughan M.D. on 11/29/2016 at 15:17 Approved by: Nils Vaughan M.D. on 11/29/2016 at 15:17 Assessment & Plan 86-year-old male with A. fib on Coumadin for 10 years, s/p AVR, follow up , hx of SDH in due to mechanical fall p/w sudden onset abdominal pain, found to have rectus sheath bleeding acute, active # Right rectal sheath hematoma, present on admission, in the setting of Coumadin , size [id number] with active extravasation 20mm, INR2.76 s/p 2FFP -We have consulted with Gen Surg, IR, since this is venous bleeding, spontaneously resolves, no indiction for embolization/surgery -Continue serial h/h q8h, close observation of hematoma size. There does not appear to be any increase in the size of the hematoma - The patient was given vitK 2mg iv, check INR tomorrow -Acute blood loss anemia. Will transfuse 2 units of packed red blood cells, hgb target>8 given CAD. Each unit will be followed by Lasix 20 mg IV -We will defer further use of anticoagulant to Cardiology, current indication seems only for afib with stroke prevention, likely not to initiate any AC given recurrent bleeding episode. # Intermittent dry cough, subacute>2kws, prior to admission, no SIRS except mild fever, s/p Rocephin/Azithromycin in ED, CT abd showed multiple pulmonary nodules in Rt posterior base, 3mm, Left posterior medial 20mm, 6mm subpleural in Rt anteroilateral base, ddx: malignancy vs atypical infection. -CT scan of the chest indicates that there is left lower lobe pneumonia and possibly round pneumonia of the right lower lobe. Repeat CT of the chest recommended in 1 month. Based on this information will restart Rocephin and azithromycin this evening. -The patient's viral PCR swab was negative -We have consulted infectious disease and Dr. Campos was kind enough to see the patient and his recommendations are as follows: "RECOMMENDATIONS: 1. I agree with continuing azithromycin and ceftriaxone for the time being, though this is an unusual presentation for community-acquired pneumonia. 2. I would repeat a procalcitonin tomorrow, as this will give us a little more data about possible bacteria etiology of this process. 3. Cryptococcal antigen is indicated in this patient. 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 4. Urine legionella and pneumococcal antigens will be ordered. 5. Sputum Gram stain and culture. 6. QuantiFERON Gold. 7. Hepatitis C antibody. 8. Nothing in the chart that I have seen really reflects any of this history of cirrhosis or any likely reason for it, and I think this is of interest and will likely need some degree of evaluation. We will start with a hepatitis C antibody but it is possible that additional studies may be indicated in the workup of the possible cirrhosis, as was seen on CT scan of the abdomen." chronic, stable # Persistent afib, rate controlled, continue BB today, reusume dilt po tomorrow # S/P bioprosthetic AVR, resume lasix pt remains HD stable Disposition: Patient is admitted under observation status, however with new CT findings of bilateral pneumonia, patient will likely need to be changed to inpatient status as he will require 48-72 hours of inpatient treatment. Diet: Continue cardiac healthy. Disposition: Patient will be here for at least another 2+ days for workup of pneumonia and stabilization hematoma. GI Prophylaxis: Not indicated VTE Mechanical Devices: Venous Foot Pump Resuscitation Status: CPR: Attempt Resuscitation Maik Chaney DO Dec 01, 2016 08:51
[2016-12-01] MEDS ORDERED: 0.9% Sodium Chloride 250 ML ONE (08:59)
[2016-12-01 09:00] LABS: INR 1.25 ratio
[2016-12-01] MEDS: cefTRIAXone Inj 2,000 MG in IV Premix 1 EACH IV SCH (09:03)
[2016-12-01] MEDS: Diltiazem CD 240 mg ER24 Capsule PO SCH (09:09)
[2016-12-01] MEDS: guaiFENesin 600 mg ER12 Tablet PO SCH ×2 (09:10→21:17)
[2016-12-01] MEDS: Azithromycin Inj 500 MG in Dextrose 5% w/Vial Mate 250 ML IV SCH (09:46)
[2016-12-01 10:09] LABS: Cryptococcal Ag Negative (Negative)
[2016-12-01 13:09] VITALS: BP 120/63; PULSE 67; RESP 16; O2SAT 92
--- NOTE | 2016-12-01 16:09 | NUR ---
Pt Activity Pt Ambulated with a walk and SBA. Pt completed one lap around the unit. Although pt swayed time to time Pt did not need any physical help with activity.
--- NOTE | 2016-12-01 17:11 | DRSVH ---
[facility] [address] [place] [address] Echocardiogram Report Name: ALEX ROMERO LStudy Date : 12/01/2016 Dharmesh ght: 71 in Hospital Exam Location: [facility] ght: 199 lb Gender: Male BSA : 2.1 m2 : 1930 Age: 86 yrs BP: 143/67 mmHg Reason For Study: AVR, EDEMA Ordering Physician: [facility]PITALIST [facility] Performed By: Shruthi Martinez Referring Physician: DR. Ana NICE, DR. Yenifer MALDONADO Interpretation Summary 1. Normal left ventricular size, wall thickness and systolic function with an estimated EF of 65 to 70% 2. Mild to moderately dilated right ventricle with grossly normal systolic function. The estimated right atrial pressure is elevated at 15 mm Hg. 3. Severe tricuspid regurgitation. The estimated RVSP is 58 mm Hg 4. The prosthetic valve appears well seated. Calcification is noted on at least one leaflet. The velocity across the valve (and mean gradient) has increased since the last echo of 2012. This is suggestive of possible stenosis. Velocities across the LV outflow tract were not obtained (thus a velocity ratio cannot be calculated) Compared to the previous echo of 2012, the RV may be more dilated. The estimated right atrial pressure is still elevated - the estimated RVSP is somewhat higher. The velocities/gradient across the prosthetic valve have increased. LV systolic function is stable. Consider GIGI if further evaluation of the prosthetic valve is required Procedure: A two-dimensional transthoracic echocardiogram with color flow and Doppler was performed. The study quality was technically adequate. Comparison is made with the echocardiogram of 10-06-2013. The patient was in atrial fibrillation with controlled ventricular rate during the exam. Left Ventricle: The left ventricle is normal in size. The ejection fraction is estimated to be 65-70%. No obvious wall motion abnormalities. Diastolic function could not be accurately assessed due to atrial fibrillation. Right Ventricle: The right ventricle is mild to moderately dilated. Grossly normal systolic function. Atria: Both atria are severely dilated. Mitral Valve: There is mild mitral annular calcification. The mitral valve leaflets appear mildly thickened, but open well. There is mild mitral regurgitation. Aortic Valve: The aortic valve is not well visualized. There is thickening of at least one of the cusps with associated calcification. In some views, the calcifications appear somewhat mobile (but visualization is not optimal). There is a bioprosthetic aortic valve. The prosthetic aortic valve is well- seated. The peak aortic velocity is 3.4 m/sec. The aortic valve mean gradient is 24 mmHg. The peak aortic velocity on the previous exam was 2.6 m/sec. No aortic regurgitation is present. Tricuspid Valve: The tricuspid valve leaflets are thin and pliable. There is severe tricuspid regurgitation. The right ventricular systolic pressure is estimated at 58 mmHg assuming a right atrial pressure of 15 mm Hg. Pulmonic Valve: The pulmonic valve is not well visualized. There is a trace or physiologic amount of pulmonic regurgitation. Great Vessels: The aortic root is normal size. The ascending aorta is mildly enlarged. The ascending aorta diameter is 4.1 cm. The pulmonary artery is normal size. The IVC is dilated (diameter is greater than 2.1 cm) and it collapses less than 50% with a sniff. This suggests a high right atrial pressure of 15 mm Hg. Pericardium/ Pleura There is no pericardial effusion. MMode/2D Measurements & Calculations LVIDd: 4.1 cm LA dimension: 4.5 cm RA long axis LVOT diam: 2.1 cm LVIDs: 2.3 cm AoV Openin.3 cm FS: 43.5 % LA A2 area: 30.0 cm RA area Ao root diam: 3.3 cm EPSS: 0.22 cm LA A4 area: 37.3 cm asc Aorta Diam IVSd: 0.89 cm LA length (vol) : 43.9 cm LVPWd: 1.1 cm RA vol Ao Arch Diam LA vol: 139.2 ml : 209.ml (Proximal trans.) LA vol index RA : 98.7 mm/ RVDd major IVC diam: 2.8 cm : 9.1 cm LV coronel. diameter/BSALV sys. diameter/BSA RVD2 (mid) (cm/m^2): 1.9 (cm/m^2): 1.1 : 4.7 cm Doppler Measurements & Calculations Ao V2 max MV E max soniya TR max soniya Ao V2 mean : 340.6 cm/sec : 153.0 cm/sec : 327.7 cm/sec : 226.8 cm/sec Ao max PG TR max PG Ao V2 VTI: 65.7 cm : 46.6 mmHg : 43.1 mmHg Ao mean PG PA V2 max : 24.2 mmHg : 78.9 cm/sec PA mean PG PA Accel Time PA V2 mean : 56.7 cm/sec Reading Physician:05:10 PM
[2016-12-01 21:04] VITALS: BP 119/69; PULSE 90; RESP 18; O2SAT 96
[2016-12-01] MEDS: HYDROcodone-APAP 5-325 mg Tablet PO PRN (21:18)
[2016-12-02] VITALS (8 sets, daily range): BP systolic 113–147; BP diastolic 63–81; PULSE 63–93; RESP 16–20; O2SAT 92–97
[2016-12-02 05:58] LABS: Mean Corpuscular Hemoglobin 28.5 pg (27.0-35.0); Mean Corpuscular Volume 87.5 fL (81-100); Platelet Count 778 bil/L (150-400)
--- NOTE | 2016-12-02 06:36 | NUR ---
Pain Pt reported some itching and burning as well as taut skin on R side of abdomen. Lotion provided and Vicodin given x1, effective. Pt asleep off and on.
[2016-12-02 06:56] LABS: BASOPHILS % (AUTO) 0 % (0-3); EOSINOPHILS % (AUTO) 1 % (0-5); MONOCYTES % (AUTO) 10 % (4-12); NEUTROPHILS % (AUTO) 80 % (40-74)
[2016-12-02] MEDS: Polyethylene Glycol (PEG) 17 Gm Powder PO SCH ×2 (08:30→09:21)
[2016-12-02] MEDS: cefTRIAXone Inj 2,000 MG in IV Premix 1 EACH IV SCH (09:20)
[2016-12-02] MEDS: guaiFENesin 600 mg ER12 Tablet PO SCH ×2 (09:20→20:07)
[2016-12-02] MEDS: Azithromycin Inj 500 MG in Dextrose 5% w/Vial Mate 250 ML IV SCH (09:20)
[2016-12-02] MEDS: Diltiazem CD 240 mg ER24 Capsule PO SCH (09:20)
[2016-12-02] MEDS: HYDROcodone-APAP 5-325 mg Tablet PO PRN (09:35)
--- NOTE | 2016-12-02 10:53 | NUR ---
MARYANNE signed. ELAYNE Adams
--- NOTE | 2016-12-02 11:19 | NUR ---
Social Work-continued d/c planning: Data:EMR Reviewed. Pt is on day 4 of hospitalization for hematoma per H&P. Pt is several days out from discharge per MD. SW followed up with pt and family at bedside, plan remains for discharge home. Pt has lots of family and friend support and has been up independent in his room. PT evaluation is pending. SW to follow up post PT evaluation is needs arise. Pt's family to provide transport home. SW will continue to follow. Assessment:Pt who is independent at baseline. Plan:Pt to likely discharge home when medically stable via POV. SW to follow up post PT evaluation is needs arise. SW will continue to follow. ELAYNE Adams
--- NOTE | 2016-12-02 13:53 | NUR ---
Evaluation completed. Please go to "Notes" then click on "Assessments and Notes" (bottom left corner of screen). Then select appropriate discipline tab on top of screen.
--- NOTE | 2016-12-02 14:56 | NUR ---
Pain/Activity Pt c/o 03/28 R flank "burning" and pain. 1 tab [place] PO administered this morning, pt reports relief. Denies pain since. Ambulated in hallway with PT today, held onto IV pole initially, then no assistive device used when walked back into his room. See PT note. Afebrile. VSS.
--- NOTE | 2016-12-02 17:29 | PCM.PNMED ---
Subjective Date of Service Dec 02, [address] Romero states that his only abdominal pain is when he starts coughing. His significant other is bedside this morning and she states that he has had occasional night sweats in which he has to change his shirt for at least 15 years, no increasing frequency of these night sweats. He denies any chills. Exam Vital Signs Vital Sign - Last Date Time Temp Pulse Resp B/P Pulse Ox O2 Delivery O2 Flow Rate FiO2 12/02/16 14:27 36.8 74 16 117/65 97 Room Air Intake and Output 12/01/16 12/01/16 12/02/16 Cumulative From/Thru 14:59 22:59 06:59 11/28/16 05:41 - 12/02/16 04:52 Intake Total 400 ml 1079 ml 600 ml 8179 ml Output Total 350 ml 350 ml Balance 50 ml 1079 ml 600 ml 7829 ml Intake Oral 400 ml 1079 ml 600 ml 6779 ml IV Total 600 ml Packed Cells 800 ml Output Urine Total 350 ml 350 ml # Voids 3 2 16 # Bowel Movements 0 1 Exam General: Elderly male resting comfortably in bed this morning talking with nursing upon my entering the room, No acute distress. Awake, alert, and oriented. Articulate. HEENT: Anicteric sclerae, moist mucus membranes. No cervical lymphadenopathy Cardiovascular: Regular rate and rhythm with a subtle S2 split. No rubs or gallops appreciated Pulmonary: Clear to auscultation bilaterally without crackles, wheezes, or rhonchi. Normal respiratory effort without accessory muscles use or tripoding. Abdomen: Normoactive bowel tones. Extensive ecchymosis on the right flank that crosses the midline anteriorly. Firm RLQ, otherwise soft. Nontender. Extremities: No clubbing, cyanosis, or edema Skin: Normal temperature, turgor, and texture; no rash or ulcers appreciated. Neurological: Cranial nerves grossly intact. Normal muscle strength, tone, and bulk. Observed ambulating, leaning on the IV pole in the hallway with PT assisting, no shuffling gait or ataxia. Psychiatric: Normal mood and affect. Lab and Diagnostics Result Diagram: 12/02/16 0500 12/02/16 0500 Microbiology Specimen: [id number] Collected: 11/28/16 Status: COMP Req#: [id number] Received: 11/28/16-1523 Source: NSP Sp Desc : Subm Dr: Tiarra Boles MD Ordered: RVP Comments: Collected by Nurse/Unit? Y/N Y Procedure Result Verified Site Microbiology ADENOVIRUS RESPIRATORY PCR Final 11/28/16 Not Detected CORONOVIRUS 229E Final 11/28/16 Not Detected CORONOVIRUS HKU1 Final 11/28/16 Not Detected CORONOVIRUS NL63 Final 11/28/16 Not Detected CORONOVIRUS OC43 Final 11/28/16 Not Detected INFLUENZA A PCR Final 11/28/16 Not Detected INFLUENZA B PCR Final 11/28/16 Not Detected METAPNEUMOVIRUS PCR Final 11/28/16 Not Detected RHINOVIRUS OR ENTEROVIRUS PCR Final 11/28/16 Not Detected PARAINFLUENZA 1 PCR Final 11/28/16 Not Detected PARAINFLUENZA 2 PCR Final 11/28/16 Not Detected PARAINFLUENZA 3 PCR Final 11/28/16 Not Detected PARAINFLUENZA 4 PCR Final 11/28/16 Not Detected CONTINUED ON NEXT PAGE RUN DATE: 11/28/16 [facility] LIVE PAGE 2 RUN TIME: 1639 Specimen Inquiry PHYSICIAN Patient: ALEX ROMERO [id number] (Continued) Specimen: [id number] Collected: 11/28/16 Received: 11/28/16 (Continued) Procedure Result Verified Site RESP SYNCYTIAL VIRUS PCR Final 11/28/16-1638 Not Detected Microbiology (Continued) CHLAMDOPHILIA PNEUMONIAE PCR Final 11/28/16-1638 Not Detected MYCOPLASMA PNEUMONIAE PCR Final 11/28/16 MYCO PNEUMONIAE PCR Not Detected Reference Interval Not Detected ELECTRIC RAZOR ASSEMBLER swab is the only specimen type cleared by the FDA. Nasal wash, tracheal aspirate, and bronchial lavage specimen types have not been cleared by the FDA. Therefore results on any specimen type other than nasopharyngeal are considered investigational testing only. X-Rays, CTs and MRIs PROCEDURE: CT ABDOMEN AND PELVIS WITH CONTRAST INDICATIONS: Abd pain, on coumadn IMPRESSION: 1. Right rectus sheath hematoma with internal active contrast extravasation. 2. Cirrhosis. 3. Bibasilar pulmonary densities, consistent with pneumonia versus rounded atelectasis. Followup chest CT with intravenous contrast in 3 months is recommended to exclude the less likely possibility of underlying neoplasm. 4. Findings discussed with Dr. Dowling on 11.28.16 at 0820 hrs. Dictated by: Nils Vaughan M.D. on 11/28/2016 at 8:31 Approved by: Nils Vaughan M.D. on 11/28/2016 at 8:31 PROCEDURE: CT CHEST WITH CONTRAST ([id number]) INDICATIONS: To evaluate for pulmonary nodules IMPRESSION: 1. No significant change in rounded density within the right lung base, possibly indicating rounded pneumonia. Continued followup is recommended to exclude malignancy, beginning with chest CT examination in 1 month. 2. Left lower lobe pneumonia. 3. Coronary artery disease and cardiomegaly. 4. Incompletely visualized right rectus sheath hematoma. Dictated by: Nils Vaughan M.D. 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 He was found to have a large rectus sheath hematoma on CT abdomen. CT chest indicative of left lower lobe pneumonia and possible right sided rounded pneumonia. Right rectus sheath hematoma, present on admission, stable - Secondary to repeated, intense coughing - (General Surgeon), IR, since this is venous bleeding, spontaneously resolves, no indiction for embolization/surgery - Continue with close observation of the hematoma size and his CBC results. - Hydrocodone-acetaminophen PO PRN Acute blood loss anemia, present on admission, improving - Blood loss secondary to the hematoma - Received 2 units of PRBCs with Lasix 20 mg IV after each unit - Goal Hgb of >8 due to his cardiac history - Continue to monitor his Hgb & Hct Chronic Atrial fibrillation, present on admission with longstanding warfarin use , stable - The hematoma and resultant anemia are the second clinically significant hemorrhagic event while he has been on warfarin. - Discontinued warfarin. Discuss with the patient that he should not take warfarin again. - Consider daily aspirin as an alternative to warfarin - Continue diltiazem 240mg daily and metoprolol tartrate BID Left lower lobe pneumonia, present on admission, active - Dry cough for 3weeks and mild fever, CT scan suggestive of pneumonia, however show pulmonary nodules - Continue ceftriaxone and azithromycin, though may consider alternative antibiotic therapy if his leukocyte count rises further - Dr. Campos (infectious disease) has provided expertise Acute Kidney Injury - Improving - Continue to monitor BMP daily - Continue IV Normal Saline at current rate Disposition: Anticipate 2-3 days for further evaluation and treatment of pneumonia and monitoring of the large hematoma. GI Prophylaxis: Not indicated VTE Mechanical Devices: Venous Foot Pump Resuscitation Status: CPR: Attempt Resuscitation Attending Statement The patient was seen and examined together with Dr. Coronel on 12/02/2016 and I agree with the history, exam and plan as outlined in the note above. Janey Coronel DO Dec 02, 2016 16:45 Wesley Cummins MD Dec 03, 2016 12:20
[2016-12-03 06:19] VITALS: PULSE 74
[2016-12-03 06:31] VITALS: BP 131/80; PULSE 74; RESP 16; O2SAT 96
[2016-12-03 07:06] LABS: BASOPHILS % (AUTO) 0.3 % (0-3); EOSINOPHILS % (AUTO) 2.5 % (0-5); MONOCYTES % (AUTO) 12.6 % (4-12); Mean Corpuscular Hemoglobin 28.2 pg (27.0-35.0); NEUTROPHILS % (AUTO) 73.4 % (40-74); Platelet Count 765 bil/L (150-400)
[2016-12-03] MEDS: Polyethylene Glycol (PEG) 17 Gm Powder PO SCH (08:06)
[2016-12-03] MEDS: guaiFENesin 600 mg ER12 Tablet PO SCH ×2 (08:09→20:13)
[2016-12-03] MEDS: Diltiazem CD 240 mg ER24 Capsule PO SCH (08:09)
[2016-12-03] MEDS: cefTRIAXone Inj 2,000 MG in IV Premix 1 EACH IV SCH (08:09)
[2016-12-03] MEDS: Azithromycin Inj 500 MG in Dextrose 5% w/Vial Mate 250 ML IV SCH (08:10)
[2016-12-03 09:59] VITALS: BP 102/62; PULSE 74; RESP 18; O2SAT 97
--- NOTE | 2016-12-03 11:20 | NUR ---
Social Work-readiness for discharge: Data:EMR Reviewed. Pt is on day 5 of hospitalization for hematoma per H&P. Per MD, pt may be ready in the next day or two. PT saw pt yesterday and recommend home with HH, pt ambulated 100 ft. SW followed up with pt at bedside to discuss, SW role explained. JESUS explained recommendation of HH services, SW provided pt with list. Pt is agreeable to with no agency preference. JESUS referred to rotating calendar and made referral to [facility] for RN and Pt, access given. F2F in the folder. SW will continue to follow. Assessment:Pt who would benefit from HH. Plan:Pt to discharge home when medically stable via POV. [facility], access given. F2F in the folder. JESUS will continue to follow. ELAYNE Adams Addendum: 12/03/16 at 1449 by ARIANNE PISANO JESUS also discussed plan with Son Brock [phone]. Son in agreement with Home Health services, JESUS provided him with list also. Son working on moving furniture and getting home ready for pt. JESUS will continue to follow. ELAYNE Adams
[2016-12-03 13:59] VITALS: BP 108/61; PULSE 66; RESP 18; O2SAT 98
[2016-12-03 17:04] VITALS: BP 130/76; PULSE 72; RESP 18; O2SAT 97
[2016-12-03] MEDS: HYDROcodone-APAP 5-325 mg Tablet PO PRN (17:30)
--- NOTE | 2016-12-03 17:47 | NUR ---
Pain/Activity Pt c/o 03/28 R flank "burning" and pain. 1 tab [place] PO administered this evening, pt reports relief. Ambulated in hallway with PT today and today, no assistive devise needed; PT orders SBA. See PT note. Afebrile. VSS.
[2016-12-03] MEDS: guaiFENesin DM 200-20 mg/10 mL Syrup PO PRN (18:18)
[2016-12-03 21:48] VITALS: BP 136/72; PULSE 93; RESP 18; O2SAT 96
--- NOTE | 2016-12-03 23:10 | PCM.PNMED ---
Subjective Date of Service Dec 03, 2016 Subjective Patient complains of cough and pain in his abdomen and right side when he coughs. He has no other new complaints. Exam Vital Signs Vital Sign - Last Date Time Temp Pulse Resp B/P Pulse Ox O2 Delivery O2 Flow Rate FiO2 12/03/16 21:48 36.0 93 18 136/72 96 Room Air Intake and Output 12/02/16 12/02/16 12/03/16 Cumulative From/Thru 15:00 23:00 07:00 11/28/16 05:41 - 12/03/16 06:31 Intake Total 1086 ml 300 ml 9565 ml Output Total 550 ml 100 ml 1000 ml Balance 536 ml 200 ml 8565 ml Intake Oral 1086 ml 300 ml 8165 ml IV Total 600 ml Packed Cells 800 ml Output Urine Total 550 ml 100 ml 1000 ml # Voids 2 2 20 # Bowel Movements 1 Exam General: Patient appears comfortable lying in bed with head elevated again at approximately 45 degrees HEENT: Head is atraumatic normocephalic with normal male pattern baldness.. Eyes: Pupils are equally round and reactive to light and accommodation. Extraocular muscles are intact. Sclera are white anicteric. Subconjunctival mucosa is pale. Ears and nose are unremarkable. Oropharynx: There is no mucosal lesions, there is no thrush, there is no pharyngitis. Neck: Is supple, there are no nodes, or masses, or tenderness. Chest: Is clear to auscultation and percussion. There are no rales, rhonchi, wheezes or rubs. Heart: Rate, rhythm is regular. There is no murmur, rub or gallop. Abdomen: Good bowel sounds are present. Abdomen is slightly less firm especially right of midline, no significant tenderness, no organomegaly or masses were appreciated. The ecchymoses and erythema has spread to the right flank. However there does not appear to be new bleeding. Extremities: Are symmetrical and well perfused. There is minimal edema, there is no cellulitis, no rash. Neurologic: There are no focal neurological deficits. Cranial nerves II through XII are intact. There are no sensory or motor deficits. Psychiatric: Patients mood is calm and shows no sign of agitation. Genital: Deferred Rectal: Deferred Lab and Diagnostics Result Diagram: 1/15/17 0603 1/15/17 0603 Microbiology Specimen: [id number] Collected: 11/28/16-1499 Status: COMP Req#: [id number] Received: 11/28/16 Source: ROSA Sp Desc : Subm Dr: Tiarra Boles MD Ordered: RVP Comments: Collected by Nurse/Unit? Y/N Y Procedure Result Verified Site Microbiology ADENOVIRUS RESPIRATORY PCR Final 11/28/16-1638 Not Detected CORONOVIRUS 229E Final 11/28/16 Not Detected CORONOVIRUS HKU1 Final 11/28/16 Not Detected CORONOVIRUS NL63 Final 11/28/16-1638 Not Detected CORONOVIRUS OC43 Final 11/28/16 Not Detected INFLUENZA A PCR Final 11/28/16 Not Detected INFLUENZA B PCR Final 11/28/16 Not Detected METAPNEUMOVIRUS PCR Final 11/28/16 Not Detected RHINOVIRUS OR ENTEROVIRUS PCR Final 11/28/16 Not Detected PARAINFLUENZA 1 PCR Final 11/28/16 Not Detected PARAINFLUENZA 2 PCR Final 11/28/16 Not Detected PARAINFLUENZA 3 PCR Final 11/28/16 Not Detected PARAINFLUENZA 4 PCR Final 11/28/16 Not Detected CONTINUED ON NEXT PAGE RUN DATE: 11/28/16 [facility] LIVE PAGE 2 RUN TIME: 1639 Specimen Inquiry PHYSICIAN Patient: ALEX MEREDITH [id number] (Continued) Specimen: [id number] Collected: 11/28/16-1499 Received: 11/28/16 (Continued) Procedure Result Verified Site RESP SYNCYTIAL VIRUS PCR Final 11/28/16-1638 Not Detected Microbiology (Continued) CHLAMDOPHILIA PNEUMONIAE PCR Final 11/28/16-1638 Not Detected MYCOPLASMA PNEUMONIAE PCR Final 11/28/16 MYCO PNEUMONIAE PCR Not Detected Reference Interval Not Detected FENCE BUILDER swab is the only specimen type cleared by the FDA. Nasal wash, tracheal aspirate, and bronchial lavage specimen types have not been cleared by the FDA. Therefore results on any specimen type other than nasopharyngeal are considered investigational testing only. X-Rays, CTs and MRIs PROCEDURE: CT ABDOMEN AND PELVIS WITH CONTRAST INDICATIONS: Abd pain, on coumadn IMPRESSION: 1. Right rectus sheath hematoma with internal active contrast extravasation. 2. Cirrhosis. 3. Bibasilar pulmonary densities, consistent with pneumonia versus rounded atelectasis. Followup chest CT with intravenous contrast in 3 months is recommended to exclude the less likely possibility of underlying neoplasm. 4. Findings discussed with Dr. Dowling on 11.28.16 at 0820 hrs. Dictated by: Nils Vaughan M.D. on 11/28/2016 at 8:31 Approved by: Nils Vaughan M.D. on 11/28/2016 at 8:31 PROCEDURE: CT CHEST WITH CONTRAST ([id number]) INDICATIONS: To evaluate for pulmonary nodules IMPRESSION: 1. No significant change in rounded density within the right lung base, possibly indicating rounded pneumonia. Continued followup is recommended to exclude malignancy, beginning with chest CT examination in 1 month. 2. Left lower lobe pneumonia. 3. Coronary artery disease and cardiomegaly. 4. Incompletely visualized right rectus sheath hematoma. Dictated by: Nils Vaughan M.D. on 11/29/2016 at 15:17 Cardiac Echo Impressions Echocardiogram Report Name: ALEX MEREDITH LStudy Date : 12/01/2016 Michi ght: 71 in Hospital Exam Location: [facility] ght: 199 lb Gender: Male BSA : 2.1 m2 : 1930 Age: 86 yrs BP: 143/67 mmHg Reason For Study: AVR, EDEMA Ordering Physician: [facility] Performed By: Shruthi Martinez Referring Physician: DR. Ana NICE, DR. Yenifer MALDONADO Interpretation Summary 1. Normal left ventricular size, wall thickness and systolic function with an estimated EF of 65 to 70% 2. Mild to moderately dilated right ventricle with grossly normal systolic function. The estimated right atrial pressure is elevated at 15 mm Hg. 3. Severe tricuspid regurgitation. The estimated RVSP is 58 mm Hg 4. The prosthetic valve appears well seated. Calcification is noted on at least one leaflet. The velocity across the valve (and mean gradient) has increased since the last echo of 2012. This is suggestive of possible stenosis. Velocities across the LV outflow tract were not obtained (thus a velocity ratio cannot be calculated) Compared to the previous echo of 2013, the RV may be more dilated. The estimated right atrial pressure is still elevated - the estimated RVSP is somewhat higher. The velocities/gradient across the prosthetic valve have increased. LV systolic function is stable. 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 He was found to have a large rectus sheath hematoma on CT abdomen. CT chest indicative of left lower lobe pneumonia and possible right sided rounded pneumonia. Right rectus sheath hematoma, present on admission, stable - Secondary to repeated, intense coughing - (General Surgeon), IR, since this is venous bleeding, spontaneously resolves, no indiction for embolization/surgery - Continue with close observation of the hematoma size and his CBC results. - Hydrocodone-acetaminophen PO PRN Acute blood loss anemia, present on admission, improving - Blood loss secondary to the hematoma - Received 2 units of PRBCs with Lasix 20 mg IV after each unit - Goal Hgb of >8 due to his cardiac history - Continue to monitor his Hgb & Hct Chronic Atrial fibrillation, present on admission with longstanding warfarin use , stable - The hematoma and resultant anemia are the second clinically significant hemorrhagic event while he has been on warfarin. - Discontinued warfarin. Discuss with the patient that he should not take warfarin again. - Consider daily aspirin as an alternative to warfarin - Continue diltiazem 240mg daily and metoprolol tartrate BID Left lower lobe pneumonia, present on admission, active - Dry cough for 3weeks and mild fever, CT scan suggestive of pneumonia, however show pulmonary nodules - Continue ceftriaxone and azithromycin, though may consider alternative antibiotic therapy if his leukocyte count rises further - Dr. Campos (infectious disease) has provided expertise. Will discuss case with Dr. Campos in a.m. Acute Kidney Injury - Improving - Continue to monitor BMP daily - Continue IV Normal Saline at current rate Disposition: Anticipate 2-3 days for further evaluation and treatment of pneumonia and monitoring of the large hematoma. Pain Evaluation: Adequate Pain Control GI Prophylaxis: Not indicated VTE Mechanical Devices: Intermittant Pneumatic CD Resuscitation Status: CPR: Attempt Resuscitation Ben Painter MD Dec 03, 2016 23:10
[2016-12-04] MEDS: guaiFENesin DM 200-20 mg/10 mL Syrup PO PRN ×3 (00:18→14:53)
[2016-12-04 05:10] VITALS: BP 123/64; PULSE 78; RESP 18; O2SAT 96
[2016-12-04 07:15] LABS: Mean Corpuscular Hemoglobin 28.6 pg (27.0-35.0); Mean Corpuscular Volume 88.6 fL (81-100); Platelet Count 810 bil/L (150-400)
[2016-12-04] MEDS: Polyethylene Glycol (PEG) 17 Gm Powder PO SCH (08:19)
[2016-12-04] MEDS: guaiFENesin 600 mg ER12 Tablet PO SCH (08:25)
[2016-12-04] MEDS: Diltiazem CD 240 mg ER24 Capsule PO SCH (08:25)
[2016-12-04] MEDS: cefTRIAXone Inj 2,000 MG in IV Premix 1 EACH IV SCH (08:25)
[2016-12-04] MEDS: Azithromycin Inj 500 MG in Dextrose 5% w/Vial Mate 250 ML IV SCH (08:25)
[2016-12-04 09:28] LABS: BASOPHILS % (AUTO) 1 % (0-3); EOSINOPHILS % (AUTO) 3 % (0-5); MONOCYTES % (AUTO) 10 % (4-12); NEUTROPHILS % (AUTO) 74 % (40-74)
--- NOTE | 2016-12-04 10:23 | NUR ---
[facility] Signed
--- NOTE | 2016-12-04 11:10 | DRSVH ---
PROCEDURE: X-RAY CHEST, TWO VIEWS ([id number]) INDICATIONS: f/u pna TECHNIQUE: 2 views of the chest were acquired. COMPARISON: [facility], CR, CHEST 2VW, 09/01/2014, 10:00. [facility], CT, CT CHEST W CON, 11/29/2016, 14:09. [facility], CR, XR CHEST 1VW (PORTABLE), 11/28/2016, 6: 30. FINDINGS: Surgical changes and devices: Cardiac valvular prosthesis and sternotomy wires.. Lungs and pleura: No pleural effusions or pneumothorax. Diffuse bibasilar consolidation, with grossl y unchanged appearance on the frontal view. Mediastinum: Mediastinal contours are normal. Heart size is normal. Bones and chest wall: No suspicious bony abnormalities. Soft tissues appear unremarkable. IMPRESSION: Bilateral lower lobe consolidation, grossly unchanged (frontal view only) since 11/28/16 Dictated by: Khang Luis M.D. on 12/04/2016 at 11:08 Approved by: Khang Luis M.D. on 12/04/2016 at 11:08
[2016-12-04 12:11] VITALS: BP 138/77; PULSE 61; RESP 18; O2SAT 98
--- NOTE | 2016-12-04 13:39 | PCM.DIMED ---
Discharge Instructions Date of Service Dec 04, 2016 Dates of Hospitalization Nov 28, 2016 at 11:16 Discharge Diagnosis Discharge Diagnosis Pneumonia with Cough and Rectus Sheath Hematoma Diet Heart Healthy Call your provider Fever or Chills, Shortness of breath, Bleeding, Chest pain, Vomitting, Excessive diarrhea, Weakness (unilateral), Other Patient Instructions Follow-up Provider: Natalie Langley MD Follow-up with PCP in: 1 week Provider: Kel Campos MD Follow-up in: 2 weeks Ben Painter MD Dec 04, 2016 13:39
[2016-12-04] MEDS ORDERED: CEFD300C3 PO (13:45)
[2016-12-04] MEDS ORDERED: GUAI600T86 PO (13:45)
[2016-12-04] MEDS ORDERED: HYDR-4003 PO (13:45)
--- NOTE | 2016-12-04 14:48 | PROG NOTE ---
[address] [address] PROGRESS NOTE PATIENT: ALEX ROMERO : 1930 MR#: [id number] ADMIT: 11/28/2016 JOB ID: [id number] DATE: 12/04/2016 INFECTIOUS DISEASE FOLLOWUP: REASON FOR FOLLOWUP: Bilateral pulmonary infiltrates. INTERVAL HISTORY: Over the weekend, the patient has continued to have quite a vigorous cough, but it is now a dry, more upper airway cough as opposed to the really devastating, violent, lower tract cough he had previously, which may have triggered his abdominal wall hematoma. He has not had notable fevers or chills over the weekend and reports his cough continues to be minimally productive, but at times, he does produce significant discolored sputum. He is not having pleuritic chest pain. No significant GI symptoms, though he does have the right abdominal wall erythema and some itching. PHYSICAL EXAMINATION: Reveals a fairly comfortable gentleman, no acute distress. He has been afebrile, really throughout his hospital stay, which is now almost a week long. Temperature 36.7, pulse 70, respiratory rate 18, blood pressure 123/64. He is saturating well on room air. The patient appears a bit pale and his conjunctivae are a little pale but otherwise reasonably comfortable. Lips without herpetic lesions. Lungs with good air flow bilaterally. A few crackles at the bases bilaterally. Cardiac tones without change. Abdomen with erythematous discoloration of the right flank at the site of his rectus sheath. Bleeding otherwise negative. The patient does not have a Linares catheter. He is able to easily stand by the side of the bed. White count stable the last few days at 12,000. The diff is fairly unimpressive though there is 1% myelocytes. His creatinine is 1.13, which is much improved over earlier in his hospital stay. Liver function tests normal. Procalcitonin yesterday 0.11. Serologic studies include negative crypto antigen, as well as negative hep C. QuantiFERON Gold, Q fever, and Aspergillus antibodies are still pending. Micro studies include the pneumococcal antigen, as well as Legionella antigen that are negative, respiratory viral multiplex PCR negative, and a sputum which had many polys but no specific organisms and grew some Zulema but no pathogen. Repeat imaging includes a repeat chest x-ray done today which shows bilateral lower lobe consolidation which appears unchanged. IMPRESSION: The patient appears to be slowly improving from an overall point of view. His rectus sheath bleeding appears to have slowed or stopped and no additional transfusions are scheduled at this point. With respect to his pulmonary process, his cough has declined in severity though not in frequency, as he still coughs often. The cause of his infiltrates remains unclear. The patient has been treated for several days now with azithromycin and ceftriaxone, but I think that typical community-acquired pneumonia is quite unlikely. His procalcitonin was only minimally elevated at its highest and now it has declined basically to zero. His white count is 12,000, which is certainly slightly elevated, but this can just as easily reflect a hematoma as an ongoing infection. We have pending studies for fungi as well as unusual pathogens, such as Q fever, and we await those studies. RECOMMENDATIONS: 1. The patient is currently on his sixth day of azithromycin and ceftriaxone. If the decision is taken for him to be discharged today, I think he might reasonably be discharged without any antibiotics or at most given a couple days of oral cefuroxime to finish a 7-10 day course of cephalosporin therapy. He has had enough azithromycin at this point for almost any so-called atypical pathogen. We already have negative PCRs for Mycoplasma and Chlamydia as well as a negative urine antigen for Legionella. 2. I will see the patient in my clinic on December 13 in followup, and I discussed this with the patient and his . At that time, will review his serologies and repeat a quality chest x-ray. It may be that the patient will need a bronchoscopy if his infiltrates persist, though I suspect these will resolve slowly and spontaneously. 3. Thank you very much for allowing me to be involved in this case.
--- NOTE | 2016-12-04 15:02 | NUR ---
Social Work-discharge: Data:EMR Reviewed. Pt is on day 6 of hospitalization for hematoma per H&P. Pt is medically stable for discharge. PT has cleared pt for home with HH services. SW informed [facility] of the discharge and F2F faxed to [facility] for RN and PT. Pt and family updated and agreeable to plan. Assessment:PT to benefit from HH. Plan:Pt to discharge home today via POV. F2F and orders faxed to [facility] for RN, and PT. Pt and family updated and agreeable to plan. ELAYNE Adams
--- NOTE | 2016-12-04 15:06 | NUR ---
Discharge D/C to home with . D/C and F/U info discussed, packet and Rxs provided. Pt and have no further questions at this time. Pt escorted off floor via REGIONAL MANAGER and W/C.
--- NOTE | 2016-12-05 00:26 | PCM.DC.MED ---
Discharge Summary Date of Service Dec 04, 2016 Dates of Hospitalization Date of Hospital Admission Nov 28, 2016 at 11:16 Date of Discharge: Dec 04, 2016 Providers: Admitting Physician: Tiarra Boles MD Primary Care Physician: Natalie Langley MD Attending Physician: Tiarra Boles MD Diagnosis at Time of Discharge Diagnosis at Time of Discharge Pneumonia with Cough and Rectus Sheath Hematoma Consultations Dr. Calderon of infectious disease. Procedures XRay, CTs & MRIs PROCEDURE: CT ABDOMEN AND PELVIS WITH CONTRAST INDICATIONS: Abd pain, on coumadn IMPRESSION: 1. Right rectus sheath hematoma with internal active contrast extravasation. 2. Cirrhosis. 3. Bibasilar pulmonary densities, consistent with pneumonia versus rounded atelectasis. Followup chest CT with intravenous contrast in 3 months is recommended to exclude the less likely possibility of underlying neoplasm. 4. Findings discussed with Dr. Dowling on 11.28.16 at 0820 hrs. Dictated by: Nils Vaughan M.D. on 11/28/2016 at 8:31 Approved by: Nils Vaughan M.D. on 11/28/2016 at 8:31 PROCEDURE: CT CHEST WITH CONTRAST ([id number]) INDICATIONS: To evaluate for pulmonary nodules IMPRESSION: 1. No significant change in rounded density within the right lung base, possibly indicating rounded pneumonia. Continued followup is recommended to exclude malignancy, beginning with chest CT examination in 1 month. 2. Left lower lobe pneumonia. 3. Coronary artery disease and cardiomegaly. 4. Incompletely visualized right rectus sheath hematoma. Dictated by: Nils Vaughan M.D. on 11/29/2016 at 15:17 Cardiac Echo Impression Echocardiogram Report Name: ALEX ROMERO LStudy Date : 12/01/2016 [facility] ght: 72 in Hospital Exam Location: [facility] ght: 199 lb Gender: Male BSA : 2.1 m2 : 1930 Age: 86 yrs BP: 143/67 mmHg Reason For Study: AVR, EDEMA Ordering Physician: [facility]PITAL[facility] Performed By: Shruthi Martinez Referring Physician: DR. Ana NICE, DR. Yenifer LANGLEY Interpretation Summary 1. Normal left ventricular size, wall thickness and systolic function with an estimated EF of 65 to 70% 2. Mild to moderately dilated right ventricle with grossly normal systolic function. The estimated right atrial pressure is elevated at 15 mm Hg. 3. Severe tricuspid regurgitation. The estimated RVSP is 58 mm Hg 4. The prosthetic valve appears well seated. Calcification is noted on at least one leaflet. The velocity across the valve (and mean gradient) has increased since the last echo of 2012. This is suggestive of possible stenosis. Velocities across the LV outflow tract were not obtained (thus a velocity ratio cannot be calculated) Compared to the previous echo of 2013, the RV may be more dilated. The estimated right atrial pressure is still elevated - the estimated RVSP is somewhat higher. The velocities/gradient across the prosthetic valve have increased. LV systolic function is stable. Consider GIGI if further evaluation of the prosthetic valve is required Brief History 86-year-old male with A. fib on Coumadin for 10 years, s/p AVR, follow up , hx of SDH in due to mechanical fall p/w sudden onset abdominal pain. Patient was usual state of health until Brady, he had intermittent dry cough , subjective chills, cough has not really progressed to productive, frequency of cough has not changed. Last night, patient also was coughing and started having soreness on his belly, gradually got worsened 8/10, no n/v, no chest pain or difficulty breathing though palpitation. Patient took Vicodin 1 tablet , which did not resolve the pain. Pain was getting worse until this morning, decided to come to the hospital ROS: Denies fever or chills, nausea, vomiting, diarrhea, consultation, had normal bowel movement yesterday, sick contacts, travel, dysuria/frequency, denied weight gain/increased abdominal girdle/LE edema In ED, VS WM978d, HR101, fever37.6, RR18, 95% on RA, pt noted to have palpitating mass on abdomen, CT abd with contrast showed hematoma in Rt rectus sheath [id number] with active extravasation 20mm, INR2.76 so pt received 2FFP, zofran, Miralax, CXR suggestive of PNA, LLL infilrate, Rocephin/azithromycin given. During interview in [facility], VS remained stable, pt stated pain improved to 3/10, denied SOB, still coughing mildly, no sputum, denied F/C. Patient was admitted to the hospital service for further evaluation treatment. 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 He was found to have a large rectus sheath hematoma on CT abdomen. CT chest indicative of left lower lobe pneumonia and possible right sided rounded pneumonia. Right rectus sheath hematoma, present on admission, stable - Secondary to repeated, intense coughing - (General Surgeon), IR, since this is venous bleeding, spontaneously resolves, no indiction for embolization/surgery - Continue with close observation of the hematoma size and his CBC results. - Hydrocodone-acetaminophen PO PRN Acute blood loss anemia, present on admission, improving - Blood loss secondary to the hematoma - Received 2 units of PRBCs with Lasix 20 mg IV after each unit - Goal Hgb of >8 due to his cardiac history - Continue to monitor his Hgb & Hct Chronic Atrial fibrillation, present on admission with longstanding warfarin use , stable - The hematoma and resultant anemia are the second clinically significant hemorrhagic event while he has been on warfarin. - Discontinued warfarin. Discuss with the patient that he should not take warfarin again. - Consider daily aspirin as an alternative to warfarin - Continue diltiazem 240mg daily and metoprolol tartrate BID Left lower lobe pneumonia, present on admission, active - Dry cough for 3weeks and mild fever, CT scan suggestive of pneumonia, however show pulmonary nodules - Change ceftriaxone and azithromycin to oral Omnicef be completed at home - Dr. Campos (infectious disease) has provided expertise. Acute Kidney Injury - Improving - Continue to monitor BMP daily - Continue IV Normal Saline at current rate Disposition: Stable for discharge home today Exam Vital Signs (Last) Date Time Temp Pulse Resp B/P Pulse Ox O2 Delivery O2 Flow Rate FiO2 12/04/16 12:11 36.8 61 18 138/77 98 Room Air Exam General: Patient appears comfortable lying in bed with head elevated again at approximately 45 degrees HEENT: Head is atraumatic normocephalic with normal male pattern baldness.. Eyes: Pupils are equally round and reactive to light and accommodation. Extraocular muscles are intact. Sclera are white anicteric. Subconjunctival mucosa is pale. Ears and nose are unremarkable. Oropharynx: There is no mucosal lesions, there is no thrush, there is no pharyngitis. Neck: Is supple, there are no nodes, or masses, or tenderness. Chest: Is clear to auscultation and percussion. There are no rales, rhonchi, wheezes or rubs. Heart: Rate, rhythm is regular. There is no murmur, rub or gallop. Abdomen: Good bowel sounds are present. Abdomen is slightly less firm especially right of midline, no significant tenderness, no organomegaly or masses were appreciated. The ecchymoses and erythema has spread to the right flank. However there does not appear to be new bleeding. Extremities: Are symmetrical and well perfused. There is minimal edema, there is no cellulitis, no rash. Neurologic: There are no focal neurological deficits. Cranial nerves II through XII are intact. There are no sensory or motor deficits. Psychiatric: Patients mood is calm and shows no sign of agitation. Genital: Deferred Rectal: Deferred Test 11/28/16 07:05 11/28/16 09:01 11/30/16 05:40 11/30/16 19:00 Lactic Acid Level 0.8mmol/L (0.4-2.0) Urine Color Yellow (YELLOW) Urine Appearance Clear (CLEAR,HAZY) Urine pH 7.5 (5.0-8.0) Urine Specific [place] 1.010 (1.003-1.035) Urine Protein Negativemg/dL (NEG,TRACE) Urine Glucose (UA) Negativemg/dL (NEGATIVE) Urine Ketones Negativemg/dL (NEGATIVE) Urine Occult Blood Negative (NEGATIVE) Urine Nitrite Negative (NEGATIVE) Urine Bilirubin Negative (NEGATIVE) Urine Urobilinogen Normalmg/dL (NORMAL) Urine Leukocyte Esterase Negative (NEGATIVE) Urine RBC 0-2/hpf (0-2) Urine WBC 0-5/hpf (0-5) Urine Epithelial Cells Occasional/hpf (NONE-MOD) Urine Crystals None seen (NONE SEEN) Urine Bacteria Few/hpf (NONE-FEW) Urine Hyaline Casts None/lpf (NONE) Urine Granular Casts None seen (NONE SEEN) Urine Waxy Casts None seen (NONE SEEN) Urine Red Blood Cell Casts None seen (NONE SEEN) Urine White Blood Cell Casts None seen (NONE SEEN) Urine Mucus None seen (None Seen) Urine Trichomonas None seen (NONE SEEN) Urine Yeast None (NONE SEEN) Urinalysis Comment None Urine Culture Reflexed Not indicated Erythrocyte Sedimentation Rate 62mm/hr (0-30) Cryptococcus Antigen Negative (Negative) Hepatitis C Antibody <0.1s/co ratio (0.0-0.9) Test 11/30/16 22:09 12/01/16 06:40 12/01/16 08:30 12/02/16 05:00 Urine Legionella pneumophilia Ag Negative (Negative) Phosphorus Level 2.5mg/dL (2.5-4.9) Magnesium Level 2.8mg/dL (1.6-2.6) Q Fever Phase I Antibody Negative (Neg:<1:16) Q Fever Phase II Antibody Negative (Neg:<1:16) Prothrombin Time 13.4sec (8.1-12.5) Prothromb Time International Ratio 1.25ratio Nucleated Red Blood Cells 2/100 WBC (0-24) Test 12/03/16 06:03 12/04/16 06:15 Procalcitonin 0.11ng/mL (See Comment) White Blood Count 12.1th/mm3 (3.8-10.1) Red Blood Count 2.97mil/mm3 (4.40-5.80) Hemoglobin 8.5g/dL (13.8-17.2) Hematocrit 26.3% (41.0-50.0) Mean Corpuscular Volume 88.6fL (81-100) Mean Corpuscular Hemoglobin 28.6pg (27.0-35.0) Mean Corpuscular Hemoglobin Concent 32.3% (32.0-37.0) Red Cell Distribution Width 24.2% (12.3-15.4) Platelet Count 810bil/L (150-400) Neutrophils (%) (Auto) 74% (40-74) Lymphocytes (%) (Auto) 9% (14-46) Monocytes (%) (Auto) 10% (4-12) Eosinophils (%) (Auto) 3% (0-5) Basophils (%) (Auto) 1% (0-3) Band Neutrophils % 2% (1-5) Myelocytes % 1% (0-0) Sodium Level 135mEq/L (134-144) Potassium Level 4.5mEq/L (3.5-5.2) Chloride Level 98mEq/L (97-108) Carbon Dioxide Level 26mmol/L (18-29) Blood Urea Nitrogen 21mg/dL (8-27) Creatinine 1.13mg/dL (0.76-1.27) Estimat Glomerular Filtration Rate 65mL/min (>59) Glucose Level 104mg/dL (60-99) Calcium Level 8.1mg/dL (8.5-10.1) Total Bilirubin 1.2mg/dL (0.0-1.2) Aspartate Amino Transf (AST/SGOT) 34U/L (0-50) Alanine Aminotransferase (ALT/SGPT) 19U/L (0-44) Alkaline Phosphatase 81U/L (25-160) Total Protein 6.2g/dL (6.4-8.4) Albumin 3.4g/dL (3.4-5.0) Microbiology Results Specimen: [id number] Collected: 11/28/16 Status: COMP Req#: [id number] Received: 11/28/16 Source: ROSA Sp Desc : Subm Dr: Tiarra Boles MD Ordered: RVDelilah Comments: Collected by Nurse/Unit? Y/N Y Procedure Result Verified Site Microbiology ADENOVIRUS RESPIRATORY PCR Final 11/28/16 Not Detected CORONOVIRUS 229E Final 11/28/16 Not Detected CORONOVIRUS HKU1 Final 11/28/16 Not Detected CORONOVIRUS NL63 Final 11/28/16 Not Detected CORONOVIRUS OC43 Final 11/28/16-1638 Not Detected INFLUENZA A PCR Final 11/28/16 Not Detected INFLUENZA B PCR Final 11/28/16 Not Detected METAPNEUMOVIRUS PCR Final 11/28/16-1638 Not Detected RHINOVIRUS OR ENTEROVIRUS PCR Final 11/28/16-1638 Not Detected PARAINFLUENZA 1 PCR Final 11/28/16 Not Detected PARAINFLUENZA 2 PCR Final 11/28/16 Not Detected PARAINFLUENZA 3 PCR Final 11/28/16 Not Detected PARAINFLUENZA 4 PCR Final 11/28/16-1638 Not Detected CONTINUED ON NEXT PAGE RUN DATE: 11/28/16 [facility] LIVE PAGE 2 RUN TIME: 1638 Specimen Inquiry PHYSICIAN Patient: ALEX ROMERO [id number] (Continued) Specimen: [id number] Collected: 11/28/16-1499 Received: 11/28/16-1522 (Continued) Procedure Result Verified Site RESP SYNCYTIAL VIRUS PCR Final 11/28/16 Not Detected Microbiology (Continued) CHLAMDOPHILIA PNEUMONIAE PCR Final 11/28/16 Not Detected MYCOPLASMA PNEUMONIAE PCR Final 11/28/16 MYCO PNEUMONIAE PCR Not Detected Reference Interval Not Detected [employer] swab is the only specimen type cleared by the FDA. Nasal wash, tracheal aspirate, and bronchial lavage specimen types have not been cleared by the FDA. Therefore results on any specimen type other than nasopharyngeal are considered investigational testing only. Discharge Medications Discharge Medications ([Albuterol inhaler]) IH PRN (Reported) Cefdinir (Cefdinir) 300 Mg Capsule 300 MG PO BID Prescribed by: CLARK PAINTER MD Diltiazem-Expunged Drug, Do Not Renew! (Diltiazem CD-Expunged Drug, Do Not Renew !) 240 Mg Capsule 240 MG PO DAILY (Reported) Furosemide (Furosemide) 80 Mg Tab 80 MG PO BID (Reported) Guaifenesin (Guaifenesin ER) 600 Mg Tab.er.12h 1,200 MG PO Q12 Prescribed by: CLARK PAINTER MD Hydrocod/APAP-Expunged, Do Not Renew! (VICODIN 5/500-Expunged Drug, Do Not Renew ) 1 Udtab Tablet 1 UDTAB PO PRN (Reported) Metoprolol Tartrate (Metoprolol Tartrate) 25 Mg Tablet 25 MG PO BID (Reported) Tamsulosin-Expunged Drug, Do Not Renew! (Flomax-Expunged Drug, Do Not Renew!) 0.4 Mg Capsule 0.4 MG PO HS (Reported) As needed Calcium Carbonate (Tums) 500 Mg Tab.chew 500 MG PO PRN PRN PRN heartburn ( Reported) Docusate Sodium (Docusate Sodium) 250 Mg Capsule 100 MG PO DAILY PRN PRN For Bowel Movement (Reported) Hydrocodone-Acetaminophen 5-325 mg (Hydrocodone-Acetaminophen 5-325 mg) 1 Each Tablet 1-2 TABLET PO Q4H PRN PRN For Moderate Pain Prescribed by: CLARK PAINTER MD Oxybutynin Chloride (Oxybutynin Chloride) 5 Mg Tablet 5 MG PO BID PRN PRN Bladder (Reported) Followup Plan Disposition: Was discharged home with his . Discharge Diet: Heart Healthy Follow-up Provider: Natalie Langley MD Follow-up with PCP in: 1 week Provider: Kel Campos MD Follow-up in: 2 weeks Time spent Time spent on discharging this patient was greater than 35 minutes, over half of which was involved in counseling and coordination of care. Ben Painter MD Dec 05, 2016 00:26
[2016-12-05] MEDS ORDERED: cefTRIAXone Inj 2,000 MG in Dextrose 5% Minibag Plus 50 ML IV SCH (08:30)
== END 2016-12-04 15:05 | disposition home or self-care (01) | DRG 194 ==
LOC: SED 05:36 → MPC 11:16 → INTOOBSV 11:16 → OBSVTOIN 11:16
PROVIDERS: ADMIT Internal Medicine; ATTEND Internal Medicine
PROC: 30233P1 Transfusion of Nonautologous Frozen Red Cells into Peripheral Vein, Percutaneous Approach (ICD-10-PCS; 2016-11-28)
PROC: 30233N1 Transfusion of Nonautologous Red Blood Cells into Peripheral Vein, Percutaneous Approach (ICD-10-PCS; principal; 2016-11-30)
DX: J18.9 Pneumonia, unspecified organism (principal); D62 Acute posthemorrhagic anemia; N17.9 Acute kidney failure, unspecified; M79.81 Nontraumatic hematoma of soft tissue; I48.2 Chronic atrial fibrillation; T45.515A Adverse effect of anticoagulants, initial encounter; Z79.51 Long term (current) use of inhaled steroids; Z95.4 Presence of other heart-valve replacement; Z79.01 Long term (current) use of anticoagulants